=== PATIENT | female | born 1990 | race Caucasian/White ===

== ENCOUNTER 2017-03-28 08:36 | Emergency (ER) | payer SELFPAY ==
[2017-03-28 08:56] VITALS: BP 133/86
[2017-03-28 09:36] LABS: HEMATOCRIT 47.5 % (36.0-47.0); HEMOGLOBIN 16.6 g/dL (12.0-15.5); MEAN CORPUSCULAR HEMOGLOBIN 39.6 pg (27.0-33.4); MEAN CORPUSCULAR HGB CONC 34.9 g/dL (32.0-36.0); PLATELET COUNT 197 10^3/uL (150-450); RED BLOOD COUNT 4.19 10^6/uL (3.72-5.28); WHITE BLOOD COUNT 11.9 10^3/uL (4.0-10.5)
[2017-03-28 09:38] LABS: MEAN CORPUSCULAR VOLUME 113 fl (80-97)
--- NOTE | 2017-03-28 09:42 | ER Document Report ---
ED General - General Chief Complaint: Breathing Difficulty Stated Complaint: DIFFICULTY BREATHING Time Seen by Provider: 03/28/17 09:38 Mode of Arrival: Ambulatory Information source: Patient Notes: 26 yr old female presents with complaints of anxiety, sob and right back pain. Pt notes it hurts upon palpation, hurts with deep breath. Pt denies any dvt pe risk factors except for smoking. TRAVEL OUTSIDE OF THE [place] IN LAST 30 DAYS: No - HPI Onset: Yesterday Onset/Duration: Sudden Quality of pain: Achy Severity: Mild Pain Level: 1 Associated symptoms: Body/muscle aches, Hurts to breath, Shortness of breath Exacerbated by: Movement, Deep breathing Relieved by: Denies Similar symptoms previously: No Recently seen / treated by doctor: No - Related Data Allergies/Adverse Reactions: No Known Allergies Allergy (Verified 11/28/12 19:42) Past Medical History - Social History Smoking Status: Current Every Day Smoker Cigarette use (# per day): Yes Chew tobacco use (# tins/day): No Smoking Education Provided: Yes Family History: Reviewed & Not Pertinent Psychiatric Medical History: Reports: Hx Anxiety, Hx Depression - Immunizations Hx Diphtheria, Pertussis, Tetanus Vaccination: Yes Review of Systems - Review of Systems Notes: REVIEW OF SYSTEMS: CONSTITUTIONAL : Denies fever, chills, or sweats. Denies recent illness. EENT: Denies eye, ear, throat, or mouth pain or symptoms. Denies nasal or sinus congestion or discharge. Denies throat, tongue, or mouth swelling or difficulty swallowing. CARDIOVASCULAR: Denies chest pain. Denies palpitations or racing or irregular heart beat. Denies ankle edema. RESPIRATORY: admits to sob GASTROINTESTINAL: Denies abdominal pain or distention. Denies nausea, vomiting , or diarrhea. Denies blood in vomitus, stools, or per rectum. Denies black, tarry stools. Denies constipation. GENITOURINARY: Denies difficulty urinating, painful urination, burning, frequency, blood in urine, or discharge. FEMALE GENITOURINARY: Denies vaginal bleeding, heavy or abnormal periods, irregular periods. Denies vaginal discharge or odor. MUSCULOSKELETAL: admits to right sided back pain HEMATOLOGIC : Denies easy bruising or bleeding. LYMPHATIC: Denies swollen, enlarged glands. NEUROLOGICAL: Denies confusion or altered mental status. Denies passing out or loss of consciousness. Denies dizziness or lightheadedness. Denies headache. Denies weakness or paralysis or loss of use of either side. Denies problems with gait or speech. Denies sensory loss, numbness, or tingling. Denies seizures. PSYCHIATRIC: Denies anxiety or stress. Denies depression, suicidal ideation, or homicidal ideation. ALL OTHER SYSTEMS REVIEWED AND NEGATIVE. PHYSICAL EXAMINATION: GENERAL: Well-appearing, well-nourished and in no acute distress. HEAD: Atraumatic, normocephalic. EYES: Pupils equal round and reactive to light, extraocular movements intact, conjunctiva are normal. ENT: Nares patent, oropharynx clear without exudates. Moist mucous membranes. NECK: Normal range of motion, supple without lymphadenopathy LUNGS: Breath sounds clear to auscultation bilaterally and equal. No wheezes rales or rhonchi. HEART: Regular rate and rhythm without murmurs ABDOMEN: Soft, nontender, nondistended abdomen. No guarding, no rebound. No masses appreciated. Female : deferred Musculoskeletal: Normal range of motion, no pitting or edema. No cyanosis. tenderness on palpation of the right axillary to right scapulary region. NEUROLOGICAL: Cranial nerves grossly intact. Normal speech, normal gait. Normal sensory, motor exams PSYCH: Normal mood, normal affect. SKIN: Warm, Dry, normal turgor, no rashes or lesions noted. Dictation was performed using [email or web address] voice recognition software Physical Exam - Vital signs Vitals: Temp Pulse Resp BP Pulse Ox 98.3 F 131 H 16 133/86 H 98 03/28/17 08:54 03/28/17 08:54 03/28/17 08:54 03/28/17 08:54 03/28/17 08:54 Course - Re-evaluation Re-evalutation: 03/28/17 10:24 pt is low risk for OE but tachycardic with inverted t waves on ekg. the V2 -3 findings are different from ekg 4 years ago 03/28/17 10:29 cta notes no pe, there is an infiltrate at the right base, pt beleives she has a pulled muscle and will treat both. Pt will be given cardiac gfollow up for inverted t waves nonethe less. After performing a Medical Screening Examination, I estimate there is LOW risk for RUPTURED ESOPHAGUS, PNEUMOTHORAX, PULMONARY EMBOLISM, ACUTE CORONARY SYNDROME, OR THORACIC AORTIC DISSECTION, thus I consider the discharge disposition reasonable. I have reevaluated this patient multiple times and no significant life threatening changes are noted. The patient and I have discussed the diagnosis and risks, and we agree with discharging home with close follow-up. We also discussed returning to the Emergency Department immediately if new or worsening symptoms occur. We have discussed the symptoms which are most concerning (e.g., bloody sputum, worsening pain or shortness of breath) that necessitate immediate return. - Vital Signs Vital signs: Temp Pulse Resp BP Pulse Ox 98.3 F 131 H 16 133/86 H 98 03/28/17 08:54 03/28/17 08:54 03/28/17 08:54 03/28/17 08:54 03/28/17 09:40 - Laboratory Result Diagrams: 03/28/17 09:08 03/28/17 09:08 Laboratory results interpreted by me: 03/28/17 03/28/17 03/28/17 09:08 09:08 09:08 WBC 11.9 H Hgb 16.6 H Hct 47.5 H MCV 113 H MCH 39.6 H RDW 15.0 H Seg Neuts % (Manual) 80 H Band Neutrophils % 1 L Monocytes % (Manual) 2 L Abs Neuts (Manual) 9.6 H Sodium 134.5 L Chloride 97 L Total Bilirubin 2.7 H Direct Bilirubin 0.8 H AST 68 H Alkaline Phosphatase 140 H Creatine Kinase 20 L Albumin 3.4 L Urine Protein 30 H Urine Glucose (UA) 50 H Urine Blood SMALL H Urine Bilirubin SMALL H Urine Urobilinogen 4.0 H Ur Leukocyte Esterase TRACE H - EKG Interpretation by Me EKG shows normal: Sinus rhythm, [place], Intervals, QRS Complexes, ST-T Waves - inverted t waves on Discharge - Discharge Clinical Impression: Anxiety, Muscle spasm, Inverted T wave Pneumonia Qualifiers: Pneumonia type: due to unspecified organism Laterality: right Lung location: lower lobe of lung Qualified Code(s): J18.1 - Lobar pneumonia, unspecified organism Condition: Stable Disposition: HOME, SELF-CARE Instructions: Pneumonia ([facility]), Electrogram Abnormality ([facility]) Prescriptions: Azithromycin 250 mg PO ASDIR PRN #6 tablet PRN Reason: Azithromycin 500 mg PO BID #30 tablet Naproxen 500 mg PO BID #20 tablet Referrals: LIZY DOCKERY MD [ACTIVE STAFF] - Follow up tomorrow
[2017-03-28 09:48] LABS: APPEARANCE,URINE TURBID; BILIRUBIN,URINE SMALL (NEGATIVE); COLOR,URINE AMBER; GLUCOSE, URINE 50 mg/dL (NEGATIVE); KETONES,URINE NEGATIVE (NEGATIVE); LEUKOCYTE ESTERASE,URINE TRACE (NEGATIVE); NITRITE,URINE NEGATIVE (NEGATIVE); PROTEIN,URINE 30 mg/dL (NEGATIVE); URINE SPECIFIC GRAVITY 1.033
[2017-03-28 09:49] LABS: ALANINE AMINOTRANSFERASE 51 U/L (9-52); ALBUMIN 3.4 g/dL (3.5-5.0); ALKALINE PHOSPHATASE 140 U/L (38-126); ANION GAP 11 (5-19); ASPARTATE AMINO TRANSFERASE 68 U/L (14-36); BILIRUBIN,DIRECT 0.8 mg/dL (0.0-0.4); BILIRUBIN,TOTAL 2.7 mg/dL (0.2-1.3); BLOOD UREA NITROGEN 7 mg/dL (7-20); CALCIUM 9.2 mg/dL (8.4-10.2); CARBON DIOXIDE 27 mmol/L (22-30); CHLORIDE 97 mmol/L (98-107); CREATINE KINASE 20 U/L (30-135); GLUCOSE 102 mg/dL (75-110); POTASSIUM 3.7 mmol/L (3.6-5.0); SODIUM 134.5 mmol/L (137-145); TOTAL PROTEIN 6.6 g/dL (6.3-8.2)
[2017-03-28] MEDS ORDERED: NAPROXEN 250 MG TABLET PO ONE (09:54)
[2017-03-28 10:02] LABS: CREATINE KINASE MB < 0.22 ng/mL (<4.55); TROPONIN I < 0.012 ng/mL
[2017-03-28 10:03] LABS: ABSOLUTE MONOCYTES # (MANUAL) 0.2 10^3/uL (0.1-1.4); ABSOLUTE NEUTROPHILS# (MANUAL) 9.6 10^3/uL (1.7-8.2); BAND NEUTROPHILS % (MANUAL) 1 % (3-5); BASOPHILS % (MANUAL) 0 % (0-2); EOSINOPHILS % (MANUAL) 0 % (0-6); LYMPHOCYTES % (MANUAL) 15 % (13-45); MONOCYTES % (MANUAL) 2 % (3-13); SEGMENTED NEUTROPHILS % (MAN) 80 % (42-78); TOTAL CELLS COUNTED 100
--- NOTE | 2017-03-28 10:03 | RADIOLOGY REPORT (SQ) ---
EXAM DESCRIPTION: CHEST PA/LAT COMPLETED DATE/TIME: 03/28/2017 9:49 am REASON FOR STUDY: rme db tachycardic COMPARISON: Two-view chest 07/05/2013 EXAM PARAMETERS: NUMBER OF VIEWS: two views TECHNIQUE: Digital Frontal and Lateral radiographic views of the chest acquired. RADIATION DOSE: NA LIMITATIONS: none FINDINGS: LUNGS AND PLEURA: No opacities, masses or pneumothorax. No pleural effusion. MEDIASTINUM AND HILAR STRUCTURES: No masses or contour abnormalities. HEART AND VASCULAR STRUCTURES: Heart normal size. No evidence for failure. BONES: No acute findings. HARDWARE: None in the chest. OTHER: No other significant finding. IMPRESSION: NO SIGNIFICANT RADIOGRAPHIC FINDING IN THE CHEST. TECHNICAL DOCUMENTATION: JOB ID: [id number] [employer]- All Rights Reserved
[2017-03-28 10:04] LABS: ANISOCYTOSIS SLIGHT; PLATELET COMMENT ADEQUATE; POLYCHROMASIA SLIGHT; ROULEAUX SLIGHT; STOMATOCYTES SLIGHT; TOXIC GRANULATION SLIGHT; TOXIC VACUOLATION PRESENT
--- NOTE | 2017-03-28 10:23 | RADIOLOGY REPORT (SQ) ---
EXAM DESCRIPTION: CTA CHEST COMPLETED DATE/TIME: 03/28/2017 10:09 am REASON FOR STUDY: chest pain sob LMP 02/24/2017 COMPARISON: None. TECHNIQUE: CT scan of the chest performed using helical scanning technique with dynamic intravenous contrast injection. Images reviewed with lung, soft tissue and bone windows. Reconstructed coronal and sagittal MPR images reviewed. Additional 3 dimensional post-processing performed to develop Maximal Intensity Projection images (MA P). All images stored on PACS. All CT scanners at this facility use dose modulation, iterative reconstruction, and/or weight based d osing when appropriate to reduce radiation dose to as low as reasonably achievable (ALARA). [facility]: Dose Right [facility]: CareDose [facility]: Dose Right [facility]: Teradose 4D [facility]: [employer] CONTRAST TYPE AND DOSE: 69 mL Isovue 370 intravenously Contrast bolus optimized for the pulmonary arteries. Not diagnostic for the aorta. RENAL FUNCTION: Creatinine 0.69 RADIATION DOSE: CT Rad equipment meets quality standard of care and radiation dose reduction techniq ues were employed. CTDIvol: 16.5 - 19.3 mGy. DLP: 697 mGy-cm. . LIMITATIONS: None. FINDINGS: LUNGS AND PLEURA: Patchy infiltrate is seen at the right lung base. No pleural effusion o r pneumothorax. AORTA AND GREAT VESSELS: No aneurysm. Contrast bolus not optimized for the aorta. HEART: No pericardial effusion. No significant coronary artery calcifications. PULMONARY ARTERIES: No emboli visualized in the main pulmonary arteries or the segmental branches. HILAR AND MEDIASTINAL STRUCTURES: No identified masses or abnormal nodes. HARDWARE: None in the chest. UPPER ABDOMEN: Likely fatty change of the liver. THYROID AND OTHER SOFT TISSUES: No masses. No adenopathy. BONES: No acute or significant finding. 3D MIPS: Confirm above findings. OTHER: No other significant finding. IMPRESSION: No CT evidence for central pulmonary embolus. Patchy infiltrate is noted at the right lung base. COMMENT: Quality ID # [id number]: Final reports with documentation of one or more dose reduction techniques (e.g., Automated exposure control, adjustment of the mA and/or kV according to patient size, use of iterative reconstruction technique) TECHNICAL DOCUMENTATION: JOB ID: [id number]- All Rights Reserved
--- NOTE | 2017-03-28 19:33 | EKG REPORT ---
SEVERITY:- ABNORMAL ECG - SINUS RHYTHM ABNORMAL T, CONSIDER ISCHEMIA, ANTERIOR LEADS BORDERLINE PROLONGED QT INTERVAL : Confirmed by: Ganga Banks 28-Mar-2017 19:32:40
== END 2017-03-28 10:47 | disposition home or self-care (01) ==
LOC: ER 08:36
DX: J18.1 Lobar pneumonia, unspecified organism (principal); F41.9 Anxiety disorder, unspecified; R94.31 Abnormal electrocardiogram [ECG] [EKG]; M62.838 Other muscle spasm; R06.02 Shortness of breath; M54.9 Dorsalgia, unspecified; R07.1 Chest pain on breathing; R00.0 Tachycardia, unspecified; F17.210 Nicotine dependence, cigarettes, uncomplicated
CPT/HCPCS: 36415; 71046; 71275; 80053; 81001; 81025; 82550; 82553; 84484; 85025; 93005; 93010; 99285

== ENCOUNTER 2017-07-18 17:12 | Emergency (ER) | payer SELFPAY ==
[2017-07-18] MEDS ORDERED: HYDROCODONE/ACETAMINOPHEN 5-325 MG TABLET PO ONE (19:47)
--- NOTE | 2017-07-18 19:51 | ER Document Report ---
ED Extremity Problem, Lower - General Chief Complaint: Leg Pain Stated Complaint: LEFT LEG PAIN Time Seen by Provider: 07/18/17 17:59 Mode of Arrival: Ambulatory Information source: Patient TRAVEL OUTSIDE OF THE [place] IN LAST 30 DAYS: No - HPI Patient complains to provider of: Pain, Swelling Notes: Patient is here with complaints of left leg pain and swelling. She states that the leg is been hurting for approximately 2 weeks. The pain started in her calf and has progressively moved up her leg. Over the last few days she has noticed that her left leg is swollen. She denies any recent long trips or surgeries, hormone use, cancer, history of DVT or PE. She states that she is now having some left posterior chest wall pain when she takes a deep breath. She denies any shortness of breath. She denies any numbness, tingling, weakness. No bowel or bladder dysfunction. No blood thinners. No fever. No abdominal pain. No nausea, vomiting, diarrhea. No injury. Nothing seems to make her symptoms better. Her left posterior chest wall pain is worse with deep breath. - Related Data Allergies/Adverse Reactions: No Known Allergies Allergy (Verified 11/28/12 19:42) Past Medical History - Social History Smoking Status: Current Every Day Smoker Chew tobacco use (# tins/day): No Frequency of alcohol use: Occasional Drug Abuse: None Family History: Reviewed & Not Pertinent Patient has suicidal ideation: No Patient has homicidal ideation: No Renal/ Medical History: Denies: Hx Peritoneal Dialysis Psychiatric Medical History: Reports: Hx Anxiety, Hx Depression - Immunizations Hx Diphtheria, Pertussis, Tetanus Vaccination: Yes Review of Systems - Review of Systems -: Yes All other systems reviewed and negative Physical Exam - Vital signs Vitals: Temp Pulse Resp BP Pulse Ox 98.4 F 113 H 18 132/86 H 97 07/18/17 17:49 07/18/17 17:49 07/18/17 17:49 07/18/17 17:49 07/18/17 17:49 - Notes Notes: GENERAL: alert, cooperative, nontoxic, no distress. HEAD: normocephalic, atraumatic EYES: conjunctiva pink without discharge, no external redness or swelling. EARS: no external swelling, no external redness NOSE: atraumatic, no external swelling MOUTH/THROAT: mucous membranes moist and pink, posterior pharynx without erythema, swelling, exudate. No trismus or drooling. NECK: soft, supple, full range of motion, no meningismus. CHEST: no distress, lungs clear and equal throughout. No wheezing, rales, rhonchi. CARDIAC: regular rhythm, mild tachycardia, no murmur, normal capillary refill, normal pulses. No peripheral edema noted. ABDOMEN: Soft, nontender. BACK: full range of motion, no CVA tenderness. EXTREMITIES: full range of motion of all extremities. No redness, swelling to the left lower extremity. Mild tenderness along the entire leg. No redness. Normal pulse and sensation. Compartments are soft. NEURO: alert and oriented x 3, no focal deficits, full range of motion of all extremities. PYSCH: appropriate mood, affect. Patient is cooperative. SKIN: pink, warm, dry, no rash. Course - Re-evaluation Re-evalutation: 07/18/17 22:19 Patient was started on heparin drip as soon as we found that that she had a full leg DVT. CTA of the chest shows bilateral pulmonary embolism with saddle embolism and by lateral pulmonary infarcts. At this point the patient remained stable with stable blood pressure and O2 saturation. She is not having any significant pain. I discussed the case with Dr. Lemus, the overnight hospitalist. He recommends transfer to another facility with vascular surgery due to the extent of her clot. 07/18/17 22:49 Patient states that she would like to go to [place] if possible. I have contacted the radiology interventional laboratory chemical assistant, he states that they would be able to take care of this patient there if the patient can be accepted for admission. I have called the transfer center for [facility] incoherently am waiting for return phone call. 07/18/17 23:26 Patient remained stable at this time. Was able to discuss the case with Dr. Alcaraz at [facility]. He has accepted the patient to the hospital there for transfer. Patient will be transferred there soon as a room is available. We will continue to monitor the patient. She will continue on her heparin drip. - Vital Signs Vital signs: Temp Pulse Resp BP Pulse Ox 98.7 F 113 H 20 123/89 H 96 07/18/17 20:50 07/18/17 17:49 07/18/17 22:01 07/18/17 22:01 07/18/17 22:01 - Laboratory Result Diagrams: 07/18/17 20:18 07/18/17 20:18 Laboratory results interpreted by me: 07/18/17 07/18/17 20:18 20:18 WBC 10.8 H Hgb 16.3 H Hct 47.5 H MCV 113 H MCH 38.8 H RDW 25.1 H Total Bilirubin 1.4 H AST 79 H Alkaline Phosphatase 141 H Albumin 3.3 L - Diagnostic Test Radiology reviewed: Image reviewed, Reports reviewed - Patient with DVT from the common femoral down on the left leg. Patient with bilateral pulmonary embolism, saddle embolism, bilateral pulmonary infarcts on CTA of the chest. - EKG Interpretation by Me EKG shows normal: Sinus rhythm, [place], Intervals, QRS Complexes, ST-T Waves Rate: Normal Rhythm: NSR Discharge - Discharge Clinical Impression: Pulmonary infarct Left leg DVT Qualifiers: Affected thrombotic vein of extremity: unspecified vein of extremity Chronicity : acute Qualified Code(s): I82.402 - Acute embolism and thrombosis of unspecified deep veins of left lower extremity Pulmonary embolism Qualifiers: Pulmonary embolism type: saddle Chronicity: acute Acute cor pulmonale presence : without acute cor pulmonale Qualified Code(s): I26.92 - Saddle embolus of pulmonary artery without acute cor pulmonale Condition: Serious Disposition: On license of [facility]
--- NOTE | 2017-07-18 20:18 | EKG REPORT ---
SEVERITY:- NORMAL ECG - SINUS RHYTHM : Confirmed by: Ganga Banks 18-Jul-2017 20:18:18
[2017-07-18 20:40] LABS: ABSOLUTE BASOPHILS # (AUTO) 0.1 10^3/uL (0.0-0.2); ABSOLUTE EOSINOPHILS # (AUTO) 0.4 10^3/uL (0.0-0.6); ABSOLUTE LYMPHOCYTES (AUTO) 2.1 10^3/uL (0.5-4.7); ABSOLUTE MONOCYTES (AUTO) 0.5 10^3/uL (0.1-1.4); ABSOLUTE NEUT (AUTO) 7.8 10^3/uL (1.7-8.2); BASOPHILS % (AUTO) 0.6 % (0-2); EOSINOPHILS % (AUTO) 3.4 % (0-6); HEMATOCRIT 47.5 % (36.0-47.0); HEMOGLOBIN 16.3 g/dL (12.0-15.5); LYMPHOCYTES % (AUTO) 19.7 % (13-45); MEAN CORPUSCULAR HEMOGLOBIN 38.8 pg (27.0-33.4); MEAN CORPUSCULAR HGB CONC 34.3 g/dL (32.0-36.0); MEAN CORPUSCULAR VOLUME 113 fl (80-97); MONOCYTES % (AUTO) 4.2 % (3-13); PLATELET COUNT 232 10^3/uL (150-450); RED CELL DISTRIBUTION WIDTH 25.1 % (11.5-14.0); SEGMENTED NEUTROPHILS % (AUTO) 72.1 % (42-78); TOTAL CELLS COUNTED % (AUTO) 100 %; WHITE BLOOD COUNT 10.8 10^3/uL (4.0-10.5)
[2017-07-18] MEDS ORDERED: HEPARIN SOD (PORCINE) 1,000 UNIT/ML 10 ML VIAL IV ONE (20:54)
[2017-07-18] MEDS ORDERED: HEPARIN SODIUM,PORCINE/D5W 25,000 UNIT/250 ML RTUINJ IV PRN (20:54)
[2017-07-18 20:58] LABS: ALANINE AMINOTRANSFERASE 51 U/L (9-52); ALBUMIN 3.3 g/dL (3.5-5.0); ALKALINE PHOSPHATASE 141 U/L (38-126); ANION GAP 11 (5-19); ASPARTATE AMINO TRANSFERASE 79 U/L (14-36); BILIRUBIN,DIRECT 0.4 mg/dL (0.0-0.4); BILIRUBIN,TOTAL 1.4 mg/dL (0.2-1.3); BLOOD UREA NITROGEN 9 mg/dL (7-20); CALCIUM 9.2 mg/dL (8.4-10.2); CARBON DIOXIDE 27 mmol/L (22-30); CHLORIDE 100 mmol/L (98-107); GLUCOSE 96 mg/dL (75-110); POTASSIUM 4.1 mmol/L (3.6-5.0); SODIUM 138.1 mmol/L (137-145); TOTAL PROTEIN 6.7 g/dL (6.3-8.2)
[2017-07-18 20:59] LABS: ANISOCYTOSIS 3+; OVALOCYTES SLIGHT; PLATELET COMMENT ADEQUATE; POIKILOCYTOSIS SLIGHT
[2017-07-18 21:02] LABS: TOXIC GRANULATION SLIGHT
--- NOTE | 2017-07-18 22:19 | RADIOLOGY REPORT (SQ) ---
EXAM DESCRIPTION: CTA CHEST COMPLETED DATE/TIME: 07/18/2017 9:31 pm REASON FOR STUDY: left posterior chest pain . Left lower extremity deep vein thrombosis. COMPARISON: CT chest 03/28/2017. CT abdomen and pelvis 07/18/2017. TECHNIQUE: CT scan of the chest performed using helical scanning technique with dynamic intravenous contrast injection. Images reviewed with lung, soft tissue and bone windows. Reconstructed coronal and sagittal MPR images reviewed. Additional 3 dimensional post-processing performed to develop Maximal Intensity Projection images (NH P). All images stored on PACS. All CT scanners at this facility use dose modulation, iterative reconstruction, and/or weight based d osing when appropriate to reduce radiation dose to as low as reasonably achievable (ALARA). [facility]: Dose Right [facility]: CareDose [facility]: Dose Right [facility]: Teradose 4D [facility]: [employer] CONTRAST TYPE AND DOSE: 71 mL Isovue 370 Contrast bolus optimized for the pulmonary arteries. Not diagnostic for the aorta. RENAL FUNCTION: None required. The patient is less than 50 years old. RADIATION DOSE: . LIMITATIONS: None. FINDINGS: LUNGS AND PLEURA: There are wedge-shaped pleural-based ground-glass opacities at the bilat eral lower lobes. No pleural effusion or pneumothorax. AORTA AND GREAT VESSELS: No thoracic aortic aneurysm. Contrast bolus not optimized for the aorta. HEART: No pericardial effusion. No significant coronary artery calcifications. PULMONARY ARTERIES: There are extensive bilateral pulmonary emboli extending across the pulmonary art galilea, consistent with saddle embolus. HILAR AND MEDIASTINAL STRUCTURES: No identified masses or abnormal nodes. HARDWARE: None in the chest. UPPER ABDOMEN: See separate report of the CT of the abdomen. THYROID AND OTHER SOFT TISSUES: No masses. No adenopathy. BONES: No acute or significant finding. 3D MIPS: Confirm above findings. IMPRESSION: 1. Acute bilateral extensive pulmonary emboli with saddle embolus. 2. Wedge-shaped pleural-based ground-glass opacities at the bilateral lower lobes fat, probably repre senting pulmonary infarcts/hemorrhages. COMMENT: Pertinent findings on the imaging study reported as a CRITICAL RESULT to Dr. Garcia At22:15 hrs on 07/18/2017. Category of Critical Result: Acute bilateral extensive pulmonary emboli with saddle embolus and bilat eral pulmonary infarcts/hemorrhages. Quality ID # [id number]: Final reports with documentation of one or more dose reduction techniques (e.g., Au tomated exposure control, adjustment of the mA and/or kV according to patient size, use of iterative reconstruction technique) TECHNICAL DOCUMENTATION: JOB ID: [id number] 2010 [employer]- All Rights Reserved Reading location - IP/workstation name: [email or web address]
--- NOTE | 2017-07-18 22:32 | RADIOLOGY REPORT (SQ) ---
EXAM DESCRIPTION: CT ABD/PELVIS WITH IV ONLY COMPLETED DATE/TIME: 07/18/2017 9:31 pm REASON FOR STUDY: left leg dvt COMPARISON: CT angiogram chest 07/18/2017. TECHNIQUE: CT scan of the abdomen and pelvis performed using helical scanning technique with dynamic intravenous contrast injection. No oral contrast. Images reviewed with lung, soft tissue, and bone windows. Reconstructed coronal and sagittal MPR images reviewed. Delayed images for evaluation of the urinary system also acquired. All images stored on PACS. All CT scanners at this facility use dose modulation, iterative reconstruction, and/or weight based d osing when appropriate to reduce radiation dose to as low as reasonably achievable (ALARA). [facility]: Dose Right [facility]: CareDose [facility]: Dose Right [facility]: Teradose 4D [facility]: [email or web address] CONTRAST TYPE AND DOSE: 71 mL Isovue 370- low osmolar. RENAL FUNCTION: None required. The patient is less than 50 years old. RADIATION DOSE: . LIMITATIONS: None. FINDINGS: LOWER CHEST: See separate report of the CT of the chest. LIVER: Diffuse decreased attenuation, most consistent with fatty infiltration. No dilated ducts. SPLEEN: Normal size. PANCREAS: No significant calcifications. No adjacent inflammation or peripancreatic fluid collections . Pancreatic duct not dilated. GALLBLADDER: Present. ADRENAL GLANDS: No significant masses or asymmetry. RIGHT KIDNEY AND URETER: No solid masses. No significant calcifications. No hydronephrosis or hyd roureter. LEFT KIDNEY AND URETER: No solid masses. No significant calcifications. No hydronephrosis or hydr oureter. AORTA AND VESSELS: No abdominal aortic aneurysm or dissection. Renal arteries, SMA, celiac without st enosis. The IVC and the common iliac veins are not well opacified. Soft tissue stranding is seen ar ound the visualized veins at the left lower leg. There is a filling defect at the left femoral vein, common femoral vein and extending into the left external iliac vein. RETROPERITONEUM: No retroperitoneal hemorrhage or masses. BOWEL AND PERITONEAL CAVITY: No dilated bowel loops or inflammatory changes. No free fluid or free ai r. APPENDIX: Normal. PELVIS: No mass. No free fluid. Partially distended bladder. ABDOMINAL WALL: No hernias. BONES: No significant or acute findings. IMPRESSION: 1. Acute deep vein thrombosis at the visualized left femoral vein, common femoral vein and extending into the left external iliac vein. The IVC and the common iliac veins are suboptimally opacified on this exam, limiting evaluation. 2. Fatty infiltration of the liver. TECHNICAL DOCUMENTATION: JOB ID: [id number] [facility] Quality ID # [id number]: Final reports with documentation of one or more dose reduction techniques (e.g., Au tomated exposure control, adjustment of the mA and/or kV according to patient size, use of iterative reconstruction technique) 2010 [employer]- All Rights Reserved Reading location - IP/workstation name: [email or web address]
[2017-07-19 02:23] VITALS: BP 112/80
--- NOTE | 2017-07-19 11:52 | XCELERA REPORT ---
[address] [address] Lower Extremity Venous Evaluation Name: BRANT MARION Age: 27 yrs Gender: Female : 1990 Patient Status: Emergency Patient Location: ER Study Date: 07/18/2017 08:27 PM Procedure: Color flow and duplex imaging of the veins of the left lower extremity as well as the right Common Femoral vein. Reason For Study: left leg pain and swelling Ordering Physician: DION FARRIS Performed By: Vahid Walker Left Sided Venous Evaluation Enlarged . veins with no Colour flow down to the infrageniculate veins. Also in the Short Saphenous vein. Interpretation Summary Extensive acute DVT in the left lower extremity. : DION FARRIS [place]
== END 2017-07-19 02:31 | disposition short-term general hospital (02) ==
LOC: ER 17:12
DX: I82.412 Acute embolism and thrombosis of left femoral vein (principal); I82.422 Acute embolism and thrombosis of left iliac vein; I26.92 Saddle embolus of pulmonary artery without acute cor pulmonale; F17.200 Nicotine dependence, unspecified, uncomplicated
CPT/HCPCS: 93005; 99285; 96365; 96366; 36415; 84703; 85025; 85730; 82272; 80053; 84484; 93971 ×2; 71275; 74177; 93010; J1644 ×2

== ENCOUNTER 2017-10-07 00:38 | Emergency (ER) | payer SELFPAY ==
[2017-10-07] MEDS ORDERED: LIDOCAINE 1%/EPINEPHRINE INJ 20 ML VIAL INJ ONE (01:02)
[2017-10-07] MEDS ORDERED: LORAZEPAM INJ 2 MG/1 ML VIAL IV ONE (01:02)
[2017-10-07] MEDS ORDERED: NORMAL SALINE 1000 ML 1,000 ML IV ONE (01:02)
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
[2017-10-07 03:12] VITALS: BP 120/80
== END 2017-10-07 03:17 | disposition home or self-care (01) ==
LOC: ER 00:38
PROC: 0HQFXZZ Repair Right Hand Skin, External Approach (ICD-10-PCS; principal; 2017-10-07)
DX: S61.411A Laceration without foreign body of right hand, initial encounter (principal); X99.1XXA Assault by knife, initial encounter; Y92.007 Garden or yard of unspecified non-institutional (private) residence as the place of occurrence of the external cause; Z86.711 Personal history of pulmonary embolism; Z79.02 Long term (current) use of antithrombotics/antiplatelets; F17.200 Nicotine dependence, unspecified, uncomplicated
CPT/HCPCS: 99283; 96361; 96374; 12002; J3490; J2060; J7030

== ENCOUNTER → 2018-02-17 | Outpatient (CLI) | payer SELFPAY ==
[2018-02-17 11:11] LABS: ABSOLUTE EOSINOPHILS # (AUTO) 0.1 10^3/uL (0.0-0.6); ABSOLUTE LYMPHOCYTES (AUTO) 2.6 10^3/uL (0.5-4.7); ABSOLUTE MONOCYTES (AUTO) 0.3 10^3/uL (0.1-1.4); ABSOLUTE NEUT (AUTO) 4.4 10^3/uL (1.7-8.2); BASOPHILS % (AUTO) 0.4 % (0-2); EOSINOPHILS % (AUTO) 1.6 % (0-6); HEMATOCRIT 47.7 % (36.0-47.0); HEMOGLOBIN 16.6 g/dL (12.0-15.5); MEAN CORPUSCULAR HEMOGLOBIN 36.8 pg (27.0-33.4); MEAN CORPUSCULAR HGB CONC 34.9 g/dL (32.0-36.0); MEAN CORPUSCULAR VOLUME 105 fl (80-97); MONOCYTES % (AUTO) 4.2 % (3-13); PLATELET COUNT 187 10^3/uL (150-450); RED BLOOD COUNT 4.52 10^6/uL (3.72-5.28); RED CELL DISTRIBUTION WIDTH 19.1 % (11.5-14.0); SEGMENTED NEUTROPHILS % (AUTO) 58.8 % (42-78); TOTAL CELLS COUNTED % (AUTO) 100 %
[2018-02-17 11:39] LABS: WHITE BLOOD COUNT 7.4 10^3/uL (4.0-10.5)
[2018-02-17 11:48] LABS: INTERNATIONAL RATION (INR) 6.03; PROTHROMBIN TIME 56.4 SEC (11.4-15.4)
== END ==
LOC: LAB 10:56
DX: I26.99 Other pulmonary embolism without acute cor pulmonale (principal)
CPT/HCPCS: 36415; 85025; 85610

== ENCOUNTER → 2018-02-20 | Outpatient (CLI) | payer SELFPAY ==
[2018-02-20 16:20] LABS: INTERNATIONAL RATION (INR) 1.71; PROTHROMBIN TIME 20.9 SEC (11.4-15.4)
== END ==
LOC: LAB 15:29
PROVIDERS: ATTEND General Practice
DX: I26.99 Other pulmonary embolism without acute cor pulmonale (principal)
CPT/HCPCS: 36415; 85610

== ENCOUNTER 2018-04-15 00:51 | Emergency (ER) | payer SELFPAY | END 2018-04-15 01:40 | disposition left against medical advice (07) | LOC: ER 00:51 | DX: Z53.21 Procedure and treatment not carried out due to patient leaving prior to being seen by health care provider (principal); R20.0 Anesthesia of skin ==

== ENCOUNTER 2018-08-31 19:26 | Emergency (ER) | payer SELFPAY ==
[2018-08-31] MEDS ORDERED: LORAZEPAM INJ 2 MG/1 ML VIAL IV ONE (20:18)
[2018-08-31 20:47] LABS: ABSOLUTE LYMPHOCYTES (AUTO) 1.7 10^3/uL (0.5-4.7); ABSOLUTE MONOCYTES (AUTO) 0.3 10^3/uL (0.1-1.4); ABSOLUTE NEUT (AUTO) 6.1 10^3/uL (1.7-8.2); BASOPHILS % (AUTO) 0.5 % (0-2); EOSINOPHILS % (AUTO) 0.3 % (0-6); HEMATOCRIT 43.8 % (36.0-47.0); HEMOGLOBIN 15.5 g/dL (12.0-15.5); LYMPHOCYTES % (AUTO) 20.4 % (13-45); MEAN CORPUSCULAR HEMOGLOBIN 40.1 pg (27.0-33.4); MEAN CORPUSCULAR HGB CONC 35.3 g/dL (32.0-36.0); MONOCYTES % (AUTO) 3.6 % (3-13); PLATELET COUNT 206 10^3/uL (150-450); RED BLOOD COUNT 3.86 10^6/uL (3.72-5.28); RED CELL DISTRIBUTION WIDTH 14.4 % (11.5-14.0); SEGMENTED NEUTROPHILS % (AUTO) 75.2 % (42-78); TOTAL CELLS COUNTED % (AUTO) 100 %; WHITE BLOOD COUNT 8.1 10^3/uL (4.0-10.5)
[2018-08-31 20:49] LABS: MEAN CORPUSCULAR VOLUME 114 fl (80-97)
[2018-08-31 21:02] LABS: PLATELET COMMENT ADEQUATE
[2018-08-31 21:03] LABS: ALANINE AMINOTRANSFERASE 70 U/L (9-52); ALBUMIN 3.5 g/dL (3.5-5.0); ALKALINE PHOSPHATASE 228 U/L (38-126); ANION GAP 18 (5-19); BILIRUBIN,DIRECT 0.7 mg/dL (0.0-0.4); BLOOD UREA NITROGEN 3 mg/dL (7-20); CALCIUM 9.2 mg/dL (8.4-10.2); CARBON DIOXIDE 22 mmol/L (22-30); CHLORIDE 98 mmol/L (98-107); GLUCOSE 97 mg/dL (75-110); POTASSIUM 3.3 mmol/L (3.6-5.0); SODIUM 137.9 mmol/L (137-145); TOTAL PROTEIN 7.2 g/dL (6.3-8.2)
[2018-08-31 21:10] LABS: ASPARTATE AMINO TRANSFERASE 244 U/L (14-36)
[2018-08-31 21:12] LABS: ALCOHOL < 10 mg/dL (NONE DETECTED)
[2018-08-31 21:22] LABS: ANISOCYTOSIS 1+; POIKILOCYTOSIS SLIGHT; STOMATOCYTES SLIGHT
[2018-08-31 22:27] LABS: INTERNATIONAL RATION (INR) 1.18; PARTIAL THROMBOPLASTIN TIME 25.7 SEC (23.5-35.8); PROTHROMBIN TIME 15.1 SEC (11.4-15.4)
[2018-08-31 22:41] LABS: AMORPHOUS SEDIMENT,URINE TRACE /HPF; APPEARANCE,URINE CLEAR; BILIRUBIN,URINE NEGATIVE (NEGATIVE); COLOR,URINE AMBER; GLUCOSE, URINE NEGATIVE (NEGATIVE); KETONES,URINE 20 mg/dL (NEGATIVE); LEUKOCYTE ESTERASE,URINE NEGATIVE (NEGATIVE); NITRITE,URINE NEGATIVE (NEGATIVE); PROTEIN,URINE 30 mg/dL (NEGATIVE); URINE SPECIFIC GRAVITY 1.024
[2018-08-31 22:58] LABS: URINE AMPHETAMINES SCREEN NEGATIVE; URINE BARBITURATES SCREEN NEGATIVE; URINE BENZODIAZEPINES SCREEN NEGATIVE; URINE COCAINE SCREEN NEGATIVE; URINE MARIJUANA (THC) SCREEN NEGATIVE; URINE METHADONE SCREEN NEGATIVE; URINE PHENCYCLIDINE SCREEN NEGATIVE
--- NOTE | 2018-08-31 23:24 | RADIOLOGY REPORT (SQ) ---
EXAM DESCRIPTION: CT CHEST ANGIOGRAPHY WITHOUT THEN WITH IV CONTRAST COMPLETED DATE/TME: 08/31/2018 21:24 CLINICAL HISTORY: 28 years Female DVT, tachycardia COMPARISON: None. TECHNIQUE: Contiguous axial images were obtained through the chest during the infusion of IV contrast. Reformatted images obtained. MIP reformatted images obtained. This exam was performed according to our department optimization program which includes automated exposure control, adjustment of the mA and/or kv according to patient size and/or use of iterative reconstruction technique. FINDINGS: No evidence of mediastinal or hilar adenopathy. No evidence of aortic dissection. No pericardial or pleural effusion. Enlarged fatty liver. No evidence of pulmonary embolus. There is an area of pleural thickening and scarring along the posterior aspect of the right chest in the region of the previously noted infiltrate/infarct. There appears to been resolution of the pulmonary emboli seen on the previous exam. IMPRESSION:No evidence of pulmonary embolus Small area of scarring in the posterior right lung Fatty liver
[2018-08-31] MEDS ORDERED: ENOXAPARIN SODIUM INJ 80 MG/0.8 ML DISP.SYRIN SUBCUT ONE (23:42)
--- NOTE | 2018-09-01 00:18 | ER Document Report ---
ED General - General Chief Complaint: Tremor Stated Complaint: ALCOLHOLISM Time Seen by Provider: 08/31/18 19:47 Primary Care Provider: BRENTON PADRON MD [Primary Care Provider] - Follow up as needed TRAVEL OUTSIDE OF THE [place] IN LAST 30 DAYS: No - HPI Notes: Patient is a 28-year-old female who comes in to the emergency department for evaluation of multiple complaints. She states she believes she was having a panic attack. She states she started feeling numb in her hands and fingers. She started having perioral numbness as well. She states this is happened in the past with her panic attacks. She was trying to control her breathing. She states she felt as if she could not control her arms, so then she became more concerned. On further questioning the patient admits to drinking daily for the last 6 months. She states she drinks both beer and liquor daily. She states she usually drinks in the evenings, when her is home and she admits to being under significant amount of stress. Patient also states to me she has had a discomfort in her left leg. She has a history of DVT there. She states it feels like a "sausage casing exploding." She denies any chest pain or difficulty breathing at this time, but states she felt that way earlier with w hat she believed was an anxiety attack. - Related Data Allergies/Adverse Reactions: No Known Allergies Allergy (Verified 11/28/12 19:42) Past Medical History - Social History Smoking Status: Current Every Day Smoker Chew tobacco use (# tins/day): Yes Frequency of alcohol use: Heavy Drug Abuse: None Family History: Reviewed & Not Pertinent Patient has suicidal ideation: No Patient has homicidal ideation: No - Past Medical History Cardiac Medical History: Reports: Hx DVT, Hx Pulmonary Embolism Renal/ Medical History: Denies: Hx Peritoneal Dialysis Psychiatric Medical History: Reports: Hx Anxiety, Hx Depression - Immunizations Immunizations up to date: Yes Hx Diphtheria, Pertussis, Tetanus Vaccination: Yes Review of Systems - Review of Systems Constitutional: No symptoms reported EENT: No symptoms reported Cardiovascular: No symptoms reported Respiratory: No symptoms reported Gastrointestinal: See HPI Genitourinary: No symptoms reported Female Genitourinary: No symptoms reported Musculoskeletal: See HPI Skin: No symptoms reported Neurological/Psychological: See HPI Physical Exam - Vital signs Vitals: Resp BP Pulse Ox 12 129/93 H 99 08/31/18 19:36 08/31/18 19:36 08/31/18 19:36 - Notes Notes: Is a very anxious appearing 28-year-old female, who appears her stated age in mild to moderate distress. Vital signs reviewed, please refer to chart. Head is normocephalic, atraumatic. Pupils equal round, reactive to light. Neck is supple without meningismus. Heart is regular rate and rhythm. Lungs are clear to auscultation bilaterally. Abdomen is soft, nontender, normoactive bowel sounds throughout. Extremities without cyanosis, clubbing. She is nontender in the right posterior calf, left posterior calf is tender to palpation. Peripheral pulses are equal. Skin is warm and dry. Patient is awake, alert, neurological exam is nonfocal. Course - Re-evaluation Re-evalutation: 09/01/18 00:22 Patient presents emergency department for evaluation. Her symptoms certainly could be anxiety related. She has been drinking daily, but I do not have a strong suspicion of alcohol withdrawal, as the patient states that she would only have started drinking about an hour ago. Her CIWA score is low. She was given anxiety medication and felt improved. Doppler was ordered, she was found to have DVT and superficial venous thrombosis in the left lower extremity. She was given Lovenox. CT angiogram of the chest was ordered, which was found to be negative. Patient has been on Coumadin in the past. She cannot afford novel anticoagulants, is self-pay. Will discuss disposition with internal medicine. 09/01/18 04:[address] Melo of internal medicine. Given the fact that this patient has uncomplicated DVT, she does not meet admission criteria. He asks that we consider case management consult to obtain Lovenox and Coumadin prescriptions as an outpatient. I will write these, patient is amenable to staying pending case management help with prescriptions. I did discuss patient's alcohol dependence as well as her elevated LFTs. The patient is planning to seek outpatient detox help with her alcohol dependence issues. I strongly encouraged her to do so. She is to follow-up with primary care by the beginning of next week at the latest. She is seen at the [facility]. - Vital Signs Vital signs: Temp Pulse Resp BP Pulse Ox 98.1 F 22 H 100/67 99 08/31/18 19:45 09/01/18 02:00 09/01/18 02:00 09/01/18 02:00 - Laboratory Result Diagrams: 08/31/18 20:37 08/31/18 20:37 Laboratory results interpreted by me: 08/31/18 08/31/18 08/31/18 20:37 20:37 21:58 MCV 114 H MCH 40.1 H RDW 14.4 H Potassium 3.3 L BUN 3 L Total Bilirubin 2.0 H Direct Bilirubin 0.7 H AST 244 H ALT 70 H Alkaline Phosphatase 228 H Urine Protein 30 H Urine Ketones 20 H Urine Blood MODERATE H Urine Urobilinogen 2.0 H - Diagnostic Test Radiology reviewed: Reports reviewed Radiology results interpreted by me: 09/01/18 00:21 Chest/Abdomen CTA 08/31/18 21:24 IMPRESSION:No evidence of pulmonary embolus Small area of scarring in the posterior right lung Fatty liver Verbal report from fuel storage technician reveals peroneal DVT on the left, as well as superficial Discharge - Discharge Clinical Impression: Abnormal LFTs Deep vein thrombosis (DVT) of left lower extremity Qualifiers: Affected thrombotic vein of extremity: other lower extremity vein Chronicity: acute Qualified Code(s): I82.492 - Acute embolism and thrombosis of other specified deep vein of left lower extremity Alcohol dependence Qualifiers: Substance use status: other alcohol-induced disorder Qualified Code(s): F10.288 - Alcohol dependence with other alcohol-induced disorder Condition: Stable Disposition: HOME, SELF-CARE Instructions: DVT Outpatient Treatment ([facility]), Chronic Alcoholism ([facility]) Additional Instructions: You need to take medications as prescribed. Have your INR rechecked, and follow-up at [facility] on Tuesday. Continue to seek help for your alcohol dependence issues. Return to the emergency department with worsening or new concerning symptoms of any sort. Prescriptions: Warfarin Sodium [Coumadin 5 mg Tablet] 5 mg PO QHS #10 tablet Enoxaparin Sodium [Lovenox] 70 mg SQ BID #10 syringe Referrals: BRENTON PADRON MD [Primary Care Provider] - Follow up as needed
--- NOTE | 2018-09-01 00:46 | RADIOLOGY REPORT (SQ) ---
EXAM DESCRIPTION: RadLex: US EXTREMITY VEINS UNILATERAL CLINICAL HISTORY: 28 years Female; pain left leg / Hx clots TECHNIQUE: Multiple grayscale sonographic images of the leg were obtained utilizing a high-frequency linear array transducer supplemented with color Doppler, compression and augmentation techniques. COMPARISON: None. FINDINGS: Left leg veins: Common femoral: normal Greater saphenous: normal upper Superficial femoral: normal mid Superficial femoral: normal lower Superficial femoral: normal Popliteal: normal Posterior tibial: normal There is thrombus involving the peroneal and superficial saphenous veins below the knee. Right common femoral vein is patent without thrombosis. IMPRESSION: 1. Thrombosis of peroneal and superficial veins below the knee. 2. No thrombosis of the deep veins at and [id number].
[2018-09-01 10:17] VITALS: BP 99/72
[2018-09-01 11:17] LABS: PATH REVIEW PATHOLOGIST REVIEWED
== END 2018-09-01 10:17 | disposition home or self-care (01) ==
LOC: ER 19:26
DX: I82.492 Acute embolism and thrombosis of other specified deep vein of left lower extremity (principal); R94.5 Abnormal results of liver function studies; F10.288 Alcohol dependence with other alcohol-induced disorder; R20.0 Anesthesia of skin; F17.220 Nicotine dependence, chewing tobacco, uncomplicated; Z86.718 Personal history of other venous thrombosis and embolism; Z86.711 Personal history of pulmonary embolism
CPT/HCPCS: 99284; 96372; 96374; 36415; 80307 ×2; 85025; 85610; 85730; 81025; 80053; 81001; 93971; 71275; J2060; J1650

== ENCOUNTER 2018-09-18 13:49 | Emergency (ER) | payer SELFPAY ==
--- NOTE | 2018-09-18 15:38 | ER Document Report ---
ED Medical Screen (RME) - General Chief Complaint: Medical Clearance Stated Complaint: MEDICAL CLEARANCE Time Seen by Provider: 09/18/18 15:34 Primary Care Provider: BRENTON PADRON MD [Primary Care Provider] - Follow up as needed Mode of Arrival: Wheelchair Information source: Patient Notes: 28-year-old female presented to ED for complaint of need for clearance for me she did want to be joints for detox. She states that she also needs an INR to monitor her blood clot in her left leg. She is on blood thinners. She states she also had a "small seizure "this morning from detox so she drank some alcohol today. She states she smokes half a pack a day the last time she drank was today and she denies using any illicit drugs. I have greeted and performed a rapid initial assessment of this patient. A comprehensive ED assessment and evaluation of the patient, analysis of test results and completion of medical decision making process will be conducted by an additional ED providers. Dictation of this chart was performed using voice recognition software; therefore, there may be some unintended grammatical errors. TRAVEL OUTSIDE OF THE [place] IN LAST 30 DAYS: No - Related Data Allergies/Adverse Reactions: No Known Allergies Allergy (Verified 09/18/18 13:52) Past Medical History - Past Medical History Cardiac Medical History: Reports: Hx DVT, Hx Pulmonary Embolism Renal/ Medical History: Denies: Hx Peritoneal Dialysis Psychiatric Medical History: Reports: Hx Anxiety, Hx Depression - Immunizations Immunizations up to date: Yes Hx Diphtheria, Pertussis, Tetanus Vaccination: Yes Physical Exam - Vital signs Vitals: Temp Pulse Resp BP Pulse Ox 98.1 F 107 H 18 109/78 99 09/18/18 14:45 09/18/18 14:45 09/18/18 14:45 09/18/18 14:45 09/18/18 14:45 Course - Vital Signs Vital signs: Temp Pulse Resp BP Pulse Ox 98.1 F 107 H 18 109/78 99 09/18/18 14:45 09/18/18 14:45 09/18/18 14:45 09/18/18 14:45 09/18/18 14:45 Doctor's Discharge - Discharge Referrals: BRENTON PADRON MD [Primary Care Provider] - Follow up as needed
[2018-09-18 16:21] LABS: INTERNATIONAL RATION (INR) 4.48; PROTHROMBIN TIME 43.8 SEC (11.4-15.4)
[2018-09-18 16:22] LABS: PARTIAL THROMBOPLASTIN TIME 45.4 SEC (23.5-35.8)
[2018-09-18 16:26] LABS: APPEARANCE,URINE CLOUDY; BILIRUBIN,URINE MODERATE (NEGATIVE); COLOR,URINE AMBER; GLUCOSE, URINE 50 mg/dL (NEGATIVE); KETONES,URINE TRACE mg/dL (NEGATIVE); LEUKOCYTE ESTERASE,URINE NEGATIVE (NEGATIVE); NITRITE,URINE NEGATIVE (NEGATIVE); PROTEIN,URINE 100 mg/dL (NEGATIVE); URINE SPECIFIC GRAVITY 1.031
[2018-09-18 16:40] LABS: ABSOLUTE BASOPHILS # (AUTO) 0.1 10^3/uL (0.0-0.2); ABSOLUTE LYMPHOCYTES (AUTO) 2.5 10^3/uL (0.5-4.7); ABSOLUTE MONOCYTES (AUTO) 0.6 10^3/uL (0.1-1.4); ABSOLUTE NEUT (AUTO) 5.6 10^3/uL (1.7-8.2); BASOPHILS % (AUTO) 0.7 % (0-2); EOSINOPHILS % (AUTO) 0.2 % (0-6); HEMATOCRIT 50.6 % (36.0-47.0); HEMOGLOBIN 17.6 g/dL (12.0-15.5); LYMPHOCYTES % (AUTO) 28.2 % (13-45); MEAN CORPUSCULAR HGB CONC 34.8 g/dL (32.0-36.0); MONOCYTES % (AUTO) 6.4 % (3-13); PLATELET COUNT 229 10^3/uL (150-450); RED BLOOD COUNT 4.51 10^6/uL (3.72-5.28); RED CELL DISTRIBUTION WIDTH 14.3 % (11.5-14.0); SEGMENTED NEUTROPHILS % (AUTO) 64.5 % (42-78); TOTAL CELLS COUNTED % (AUTO) 100 %; WHITE BLOOD COUNT 8.7 10^3/uL (4.0-10.5)
[2018-09-18 16:48] LABS: URINE AMPHETAMINES SCREEN NEGATIVE; URINE BARBITURATES SCREEN NEGATIVE; URINE BENZODIAZEPINES SCREEN UNCONFIRMED POSITIVE; URINE COCAINE SCREEN NEGATIVE; URINE MARIJUANA (THC) SCREEN NEGATIVE; URINE METHADONE SCREEN NEGATIVE; URINE PHENCYCLIDINE SCREEN NEGATIVE
[2018-09-18 17:03] LABS: ALANINE AMINOTRANSFERASE 68 U/L (9-52); ALBUMIN 3.9 g/dL (3.5-5.0); ALCOHOL 41 mg/dL (NONE DETECTED); ALKALINE PHOSPHATASE 259 U/L (38-126); ANION GAP 14 (5-19); ASPARTATE AMINO TRANSFERASE 222 U/L (14-36); BILIRUBIN,DIRECT 0.6 mg/dL (0.0-0.4); BILIRUBIN,TOTAL 1.3 mg/dL (0.2-1.3); BLOOD UREA NITROGEN 7 mg/dL (7-20); CALCIUM 9.7 mg/dL (8.4-10.2); CARBON DIOXIDE 32 mmol/L (22-30); CHLORIDE 88 mmol/L (98-107); GLUCOSE 82 mg/dL (75-110); MEAN CORPUSCULAR VOLUME 112 fl (80-97); POTASSIUM 3.1 mmol/L (3.6-5.0); SODIUM 134.1 mmol/L (137-145); TOTAL PROTEIN 7.6 g/dL (6.3-8.2)
[2018-09-18 17:04] LABS: ACETAMINOPHEN < 10 ug/mL (10-30); SALICYLATE < 1.0 mg/dL (2.0-20.0)
[2018-09-18 17:10] LABS: PLATELET COMMENT ADEQUATE; PLATELET LARGE PRESENT
[2018-09-18 17:11] LABS: ANISOCYTOSIS SLIGHT
[2018-09-18] MEDS ORDERED: THIAMINE HCL 100 MG TABLET PO ONE (19:25)
[2018-09-18] MEDS ORDERED: POTASSIUM CHLORIDE 10 MEQ CAPSULE.ER PO ONE (19:25)
[2018-09-19] MEDS ORDERED: LORAZEPAM INJ 2 MG/1 ML VIAL IV ONE ×2 (00:41→04:10)
--- NOTE | 2018-09-19 02:29 | RADIOLOGY REPORT (SQ) ---
EXAM DESCRIPTION: CT CHEST ANGIOGRAPHY WITHOUT THEN WITH IV CONTRAST COMPLETED DATE/TME: 09/19/2018 00:40 CLINICAL HISTORY: 28 years, Female, eval for PE. HCG NEG. COMPARISON: None. TECHNIQUE: Axial images through the chest were performed after the administration of intravenous contrast using a pulmonary embolus protocol. MIPS were performed. This exam was performed according to our departmental dose-optimization program which includes use of Automated Exposure Control, adjustment of the mA and/or kV according to patient size and/or use of iterative reconstruction technique. FINDINGS: No pulmonary embolus is identified. Normal caliber aorta without dissection. No pericardial effusion. No pleural effusion. No focal lung consolidation. No pneumothorax. Patent central airway. Soft tissues are unremarkable. No acute osseous findings. No acute abnormality within the visualized upper abdomen. Diffuse hepatic steatosis. IMPRESSION: No pulmonary embolus.
[2018-09-19] MEDS ORDERED: NORMAL SALINE 1000 ML 1,000 ML IV ONE (02:50)
--- NOTE | 2018-09-19 03:47 | ER Document Report ---
ED General - General Chief Complaint: Medical Clearance Stated Complaint: MEDICAL CLEARANCE Time Seen by Provider: 09/18/18 15:34 Primary Care Provider: BRENTON PADRON MD [Primary Care Provider] - Follow up as needed Mode of Arrival: Wheelchair TRAVEL OUTSIDE OF THE [place] IN LAST 30 DAYS: No - HPI Notes: Patient is a 28-year-old female who presents to the emergency department for evaluation. She wants to go to alcohol detox. I actually saw this patient recently. She was diagnosed with a DVT in the left lower extremity, started on Coumadin. Because of her multiple medical issues, she was seen by [facility], they told her to go to the laboratory here at the hospital to be medically cleared for detox program. She had been turned down from detox programs recently because of Coumadin. The lab was closed per the patient, so she comes here. She states she has had emesis frequently. She has been drinking small amounts of alcohol on a daily basis because she is had "seizures" nearly daily. - Related Data Allergies/Adverse Reactions: No Known Allergies Allergy (Verified 09/18/18 13:52) Past Medical History - General Information source: Patient - Social History Smoking Status: Current Every Day Smoker Frequency of alcohol use: Heavy Drug Abuse: None Family History: Reviewed & Not Pertinent Patient has suicidal ideation: No Patient has homicidal ideation: No - Past Medical History Cardiac Medical History: Reports: Hx DVT, Hx Pulmonary Embolism Renal/ Medical History: Denies: Hx Peritoneal Dialysis Psychiatric Medical History: Reports: Hx Anxiety, Hx Depression - Immunizations Immunizations up to date: Yes Hx Diphtheria, Pertussis, Tetanus Vaccination: Yes Review of Systems - Review of Systems Constitutional: See HPI EENT: No symptoms reported Cardiovascular: No symptoms reported Respiratory: No symptoms reported Gastrointestinal: See HPI Genitourinary: No symptoms reported Musculoskeletal: No symptoms reported Skin: No symptoms reported Neurological/Psychological: No symptoms reported Physical Exam - Vital signs Vitals: Temp Pulse Resp BP Pulse Ox 98.1 F 107 H 18 109/78 99 09/18/18 14:45 09/18/18 14:45 09/18/18 14:45 09/18/18 14:45 09/18/18 14:45 - Notes Notes: Vital signs reviewed, please refer to chart. Head is normocephalic, atraumatic. Pupils equal round, reactive to light. Neck is supple without meningismus. Heart is regular rate and rhythm. Lungs are clear to auscultation bilaterally. Abdomen is soft, nontender, normoactive bowel sounds throughout. Extremities w ithout cyanosis, clubbing. Posterior calves are nontender. Peripheral pulses are equal. Skin is warm and dry. Patient is awake, alert, neurological exam is nonfocal. No tremors noted. Patient was mildly depressed affect, but makes good eye contact. Course - Re-evaluation Re-evalutation: 09/19/18 03:47 Patient presents to the emergency department for evaluation. She has multiple medical issues, including alcohol dependence and abuse. Laboratory investigations were initially obtained. EKG had been ordered through triage as well. Initial EKG showed a sinus mechanism and diffuse T wave inversions concerning for potential ischemia. This was a change from prior study. Given the abnormal ST and T segments, I did have a suspicion that this was secondary to electrolyte abnormalities. Patient had magnesium ordered in addition to her potassium. The potassium is found to be low, this was replaced orally once it was found the magnesium was normal. Her QT was prolonged, however, some magnesium was ordered IV. Laboratory investigations otherwise did show some significant dehydration. This was a change from prior studies. She was given a liter of normal saline. Repeat EKG continued to show significant anterolateral ST and T wave changes. Because of this troponins were added, CT angiogram of the chest was ordered. Patient's INR was found to be elevated. Her hemoglobin, however, was stable. I will have the patient hold her Coumadin. 09/19/18 04:07 Patient remained stable. I do not have a clear etiology for this patient's EKG changes. She was given IV fluids to correct her electrolyte abnormalities. She was given Ativan. We will give her further Ativan as she remains mildly tachycardic. Her cardiac enzymes were negative x2. Her LFTs are abnormal, but they have been abnormal. We will also write with prescription for Zofran. She continues to have some issues, but I believe they are stable for outpatient follow-up. She is medically clear for psychiatric evaluation. 09/19/18 04:12 - Vital Signs Vital signs: Temp Pulse Resp BP Pulse Ox 98.2 F 114 H 16 116/83 99 09/19/18 00:20 09/19/18 00:20 09/19/18 00:20 09/19/18 00:20 09/19/18 00:20 - Laboratory Result Diagrams: 09/18/18 16:03 09/18/18 16:03 Laboratory results interpreted by me: 09/18/18 09/18/18 09/18/18 16:03 16:03 16:03 Hgb 17.6 H Hct 50.6 H MCV 112 H MCH 39.0 H RDW 14.3 H PT 43.8 H APTT 45.4 H Sodium 134.1 L Potassium 3.1 L Chloride 88 L Carbon Dioxide 32 H Direct Bilirubin 0.6 H AST 222 H ALT 68 H Alkaline Phosphatase 259 H Urine Protein Urine Glucose (UA) Urine Ketones Urine Blood Urine Bilirubin Urine Urobilinogen Salicylates < 1.0 L Acetaminophen < 10 L 09/18/18 16:03 Hgb Hct MCV MCH RDW PT APTT Sodium Potassium Chloride Carbon Dioxide Direct Bilirubin AST ALT Alkaline Phosphatase Urine Protein 100 H Urine Glucose (UA) 50 H Urine Ketones TRACE H Urine Blood LARGE H Urine Bilirubin MODERATE H Urine Urobilinogen 4.0 H Salicylates Acetaminophen - Diagnostic Test Radiology reviewed: Reports reviewed Radiology results interpreted by me: 09/19/18 04:10 Chest/Abdomen CTA 09/19/18 00:40 IMPRESSION: No pulmonary embolus. - EKG Interpretation by Me Additional EKG results interpreted by me: 09/19/18 04:10 Initial EKG reveals a sinus mechanism with a rate of 76 bpm. Normal axis, long QT. T wave inversions in anterolateral leads concerning for ischemia. Repeat EKG remained unchanged. Discharge - Discharge Clinical Impression: Supratherapeutic INR, Alcohol abuse with physiological dependence, Dehydration Nausea and vomiting Qualifiers: Vomiting Intractability: intractable Condition: Stable Disposition: PSYCH HOSP/UNIT Additional Instructions: Hold your Coumadin tonight. Have your INR rechecked tomorrow. You should also have your electrolytes rechecked, as your potassium was low and you did show signs of dehydration. Zofran as needed for nausea and vomiting. Librium as needed for symptoms related to alcohol withdrawal. Return to the ED with worsening or new concerning symptoms of any sort. Forms: Follow-Up Laboratory Testing Referrals: BRENTON PADRON MD [Primary Care Provider] - Follow up as needed
[2018-09-19] MEDS ORDERED: MAGNESIUM SULFATE/D5W 1 GM/100 ML RTUPB IV ONE (04:12)
[2018-09-19] MEDS ORDERED: ATENOLOL 50 MG TABLET PO ONE (05:00)
[2018-09-19] MEDS ORDERED: THIAMINE HCL 100 MG, FOLIC ACID 1 MG in NORMAL SALINE 250 ML IV ONE (05:00)
[2018-09-19] MEDS ORDERED: PHYTONADIONE 5 MG TABLET PO ONE (05:00)
[2018-09-19] MEDS ORDERED: POTASSIUM PHOS,M-BASIC-D-BASIC 15 MMOL in NORMAL SALINE 250 ML IV ONE (05:00)
[2018-09-19] MEDS ORDERED: DIAZEPAM 5 MG TABLET PO ONE (05:00)
[2018-09-19 05:24] LABS: ANION GAP 10 (5-19); BLOOD UREA NITROGEN 8 mg/dL (7-20); CALCIUM 8.2 mg/dL (8.4-10.2); CARBON DIOXIDE 34 mmol/L (22-30); CHLORIDE 86 mmol/L (98-107); CREATINE KINASE 26 U/L (30-135); GLUCOSE 105 mg/dL (75-110); PHOSPHORUS 3.1 mg/dL (2.5-4.5); POTASSIUM 3.2 mmol/L (3.6-5.0); SODIUM 130.1 mmol/L (137-145)
--- NOTE | 2018-09-19 06:21 | PDOC CONSULTATION ---
Consultation Consult Date: 09/19/18 Attending physician:: DEE LEO Provider Consulted: FELIX WEISS Consult reason:: EKG abnormalities History of Present Illness Admission Date/PCP: 09/19/2018 04:01 BRENTON PADRON MD Patient complains of: Alcohol withdrawl symptoms History of Present Illness: BRANT MARION is a 28 year old female who presented to the emergency department for a detox evaluation so she may be medically cleared for detox program. She admits to having several symptoms of alcohol withdrawal since reducing her alcohol consumption. She acknowledges frequent episodes of vomiting and she has "small seizures" every day. She admits her resumption of drinking some alcohol daily "in order to try to control my seizures". She was recently evaluated and found to have a deep venous thrombosis in her left lower extremity and was placed on oral Coumadin as therapy. She has been taking her Coumadin but because she has not been established on a consistent dose she is finding a great deal of difficulty in being accepted by a detox program. Past Medical History Cardiac Medical History: Reports: DVT, Pulmonary Embolism Denies: Coronary Artery Disease, Hypertension Pulmonary Medical History: Denies: Asthma, Chronic Obstructive Pulmonary Disease (COPD) EENT Medical History: Denies: Cataracts, Ears - Hearing aids Neurological Medical History: Denies: Migraine, Multiple Sclerosis Endocrine Medical History: Denies: Diabetes Mellitus Type 1, Diabetes Mellitus Type 2, Hyperthyroidism, Hypothyroidism Renal/ Medical History: Denies: Chronic Kidney Disease, Nephrolithiasis Malignancy Medical History: Reports: None GI Medical History: Reports: Other - Elevated liver enzymes due to alcohol abuse Denies: Cirrhosis, Hepatitis Musculoskeltal Medical History: Denies: Arthritis, Fibromyalgia, Gout Skin Medical History: Denies: Eczema, Psoriasis Psychiatric Medical History: Reports: Alcohol Dependency, Depression, Tobacco Dependency Social History Information Source: Patient Lives with: Spouse/Significant other Smoking Status: Current Every Day Smoker Frequency of Alcohol Use: Heavy Hx Recreational Drug Use: No Drugs: None Hx Prescription Drug Abuse: No - Advance Directive Resuscitation Status: Full Code Surrogate healthcare decision maker:: Jonathan Boo Family History Family History: denies: CAD Parental Family History Reviewed: Yes Children Family History Reviewed: No Sibling(s) Family History Reviewed.: Yes Medication/Allergy Home Medications: Enoxaparin Sodium [Lovenox] 70 mg SQ BID #10 syringe 09/01/18 Warfarin Sodium [Coumadin 5 mg Tablet] 5 mg PO QHS #10 tablet 09/01/18 Chlordiazepoxide HCl [Librium 25 mg Capsule] 1 cap PO QID PRN #28 capsule 09/19/18 Ondansetron HCl [Zofran 8 mg Tablet] 8 mg PO Q8HP PRN #30 tablet 09/19/18 Allergies/Adverse Reactions: No Known Allergies Allergy (Verified 09/18/18 13:52) Review of Systems Constitutional: ABSENT: chills, fever(s) Eyes: ABSENT: visual disturbances, other - Ocular pain Ears: ABSENT: hearing changes, other - Ear pain Nose, Mouth, and Throat: ABSENT: mouth pain, sore throat Cardiovascular: ABSENT: chest pain, palpitations Respiratory: ABSENT: cough, dyspnea Gastrointestinal: PRESENT: nausea, vomiting. ABSENT: abdominal pain, constipation, diarrhea Genitourinary: ABSENT: dysuria, hematuria Musculoskeletal: ABSENT: back pain, joint swelling, muscle weakness Integumentary: ABSENT: pruritus, rash Neurological: PRESENT: convulsions - "Small seizures" almost every day. ABSENT: confusion, focal weakness, memory loss, syncope Psychiatric: PRESENT: anxiety, depression. ABSENT: hallucinations Endocrine: ABSENT: cold intolerance, heat intolerance Hematologic/Lymphatic: PRESENT: easy bruising. ABSENT: easy bleeding Physical Exam Vital Signs: Temp Pulse Resp BP Pulse Ox 98.2 F 114 H 16 116/83 99 09/19/18 00:20 09/19/18 00:20 09/19/18 00:20 09/19/18 00:20 09/19/18 00:20 Intake & Output 09/17/18 09/18/18 09/19/18 23:59 23:59 23:59 Weight 59.4 kg General appearance: PRESENT: no acute distress, cooperative Head exam: PRESENT: atraumatic, normocephalic Eye exam: PRESENT: conjunctiva pink. ABSENT: conjunctival injection, scleral icterus Ear exam: PRESENT: normal external ear exam. ABSENT: bleeding, drainage Mouth exam: PRESENT: dry mucosa, neck supple Neck exam: PRESENT: JVD. ABSENT: thyromegaly, tracheal deviation Respiratory exam: PRESENT: clear to auscultation beverley, symmetrical, unlabored Cardiovascular exam: PRESENT: RRR. ABSENT: clicks, gallop, rubs Pulses: PRESENT: normal radial pulses, normal dorsalis pedis pul Vascular exam: PRESENT: normal capillary refill. ABSENT: pallor GI/Abdominal exam: PRESENT: normal bowel sounds, soft Rectal exam: PRESENT: deferred Extremities exam: ABSENT: joint swelling, pedal edema, tenderness Musculoskeletal exam: PRESENT: full ROM, normal inspection Neurological exam: PRESENT: alert, oriented to person, oriented to place, oriented to time, oriented to situation, ataxia - Mild ataxia present, CN II-XII grossly intact, other - Mild tremor noted. ABSENT: motor sensory deficit Psychiatric exam: PRESENT: anxious, depressed Skin exam: PRESENT: dry, intact, warm. ABSENT: jaundice, rash, urticaria Results Laboratory Results: 09/18/18 16:03 09/18/18 09/18/18 09/18/18 16:03 16:03 16:03 WBC 8.7 RBC 4.51 Hgb 17.6 H Hct 50.6 H MCV 112 H MCH 39.0 H MCHC 34.8 RDW 14.3 H Plt Count 229 Seg Neutrophils % 64.5 Lymphocytes % 28.2 Monocytes % 6.4 Eosinophils % 0.2 Basophils % 0.7 Absolute Neutrophils 5.6 Absolute Lymphocytes 2.5 Absolute Monocytes 0.6 Absolute Eosinophils 0.0 Absolute Basophils 0.1 Sodium 134.1 L Potassium 3.1 L Chloride 88 L Carbon Dioxide 32 H Anion Gap 14 BUN 7 Creatinine 0.79 Est GFR ( Amer) > 60 Est GFR (Non-Af Amer) > 60 Glucose 82 Calcium 9.7 Magnesium Total Bilirubin 1.3 AST 222 H ALT 68 H Alkaline Phosphatase 259 H Total Protein 7.6 Albumin 3.9 Serum HCG, Qual NEGATIVE Urine Color Urine Appearance Urine pH Ur Specific [place] Urine Protein Urine Glucose (UA) Urine Ketones Urine Blood Urine Nitrite Ur Leukocyte Esterase Urine WBC (Auto) Urine RBC (Auto) 09/18/18 09/18/18 16:03 16:03 WBC RBC Hgb Hct MCV MCH MCHC RDW Plt Count Seg Neutrophils % Lymphocytes % Monocytes % Eosinophils % Basophils % Absolute Neutrophils Absolute Lymphocytes Absolute Monocytes Absolute Eosinophils Absolute Basophils Sodium Potassium Chloride Carbon Dioxide Anion Gap BUN Creatinine Est GFR ( Amer) Est GFR (Non-Af Amer) Glucose Calcium Magnesium 1.9 Total Bilirubin AST ALT Alkaline Phosphatase Total Protein Albumin Serum HCG, Qual Urine Color RICHI Urine Appearance CLOUDY Urine pH 6.0 Ur Specific [place] 1.031 Urine Protein 100 H Urine Glucose (UA) 50 H Urine Ketones TRACE H Urine Blood LARGE H Urine Nitrite NEGATIVE Ur Leukocyte Esterase NEGATIVE Urine WBC (Auto) 30 Urine RBC (Auto) 151 09/18/18 09/19/18 16:03 03:00 Troponin I < 0.012 < 0.012 Impressions: Chest/Abdomen CTA 09/19/18 00:40 IMPRESSION: No pulmonary embolus. Assessment and Plan - Diagnosis (1) Alcohol withdrawal Qualifiers: Complication of substance-induced condition: uncomplicated Qualified Code(s): F10.230 - Alcohol dependence with withdrawal, uncomplicated Is this a current diagnosis for this admission?: Yes Plan: Patient's anxiety and tremors and other withdrawal symptoms should be treated with Valium 5 mg p.o. every 4 hours over the course of the next 72 hours. Patient should refrain from use of any alcohol over that same period of time. At the end of the 72-hour period patient should be reevaluated for need to continue an anxiolytic such as diazepam or clonazepam. (2) Hypokalemia Is this a current diagnosis for this admission?: Yes Plan: Patient will receive oral and IV replacement of her potassium. Potassium phosphate IV will be used for the immediate replacement of the patient's potassium. (3) Supratherapeutic INR Is this a current diagnosis for this admission?: Yes Plan: Patient receive oral vitamin K to help to reduce her INR to a therapeutic level. The patient should have her INR rechecked in 24 hours and then a recalculation of her warfarin dosage could be entertained. It would be best for this patient to be started on either Lovenox at 1.5 mg/kg given once daily subcutaneously or she could be started on Xarelto/Pradaxa/Eliquis if this can be available to her in rehab and is covered by either her insurance or a program for patients with a need and no insurance. (4) Alcohol abuse with physiological dependence Is this a current diagnosis for this admission?: Yes Plan: Patient will be treated with Valium to help control her anxiety and other psychological reactions to discontinuation of alcohol. Her physiological dependence will be treated by repleting her potassium, checking and repleting phosphorus as needed, administration of a banana bag x1 and administration of oral Aden acid 1 mg x 1. Patient should be maintained on oral thiamine after her discharge and she may require additional phosphorus given orally to complete repletion of a depleted level if one is detected. - Time Time Spent with patient: 25-34 minutes Smoking Cessation Education: 3 to 10 minutes Medications reviewed and adjusted accordingly: Yes Anticipated discharge: Home - Patient should be discharged from the emergency room. There is no clear-cut indication for medical admission. Disposition: Patient should be discharged from the emergency room after completing her recommended course of treatment. If patient for some reason becomes unstable or is not fit for discharge please feel free to reconsult the hospitalist service.
[2018-09-19 09:53] LABS: CREATINE KINASE MB 0.25 ng/mL (<4.55)
[2018-09-19 09:57] LABS: TROPONIN I < 0.012 ng/mL
--- NOTE | 2018-09-19 10:16 | RADIOLOGY REPORT (SQ) ---
EXAM DESCRIPTION: CT HEAD WITHOUT COMPLETED DATE/TIME: 09/19/2018 10:06 am REASON FOR STUDY: seizure COMPARISON: None. TECHNIQUE: Axial images acquired through the brain without intravenous contrast. Images reviewed wi th bone, brain and subdural windows. Additional sagittal and coronal reconstructions were generated. Images stored on PACS. All CT scanners at this facility use dose modulation, iterative reconstruction, and/or weight based d osing when appropriate to reduce radiation dose to as low as reasonably achievable (ALARA). [facility]: Dose Right [facility]: CareDose [facility]: Dose Right [facility]: Teradose 4D [facility]: ETC Education RADIATION DOSE: CT Rad equipment meets quality standard of care and radiation dose reduction techniq ues were employed. CTDIvol: 53.2 mGy. DLP: 1044 mGy-cm. mGy. LIMITATIONS: None. FINDINGS: VENTRICLES: Normal size and contour. CEREBRUM: No masses. No hemorrhage. No midline shift. No evidence for acute infarction. Normal gra y/white matter differentiation. No areas of low density in the white matter. CEREBELLUM: No masses. No hemorrhage. No alteration of density. No evidence for acute infarction. EXTRAAXIAL SPACES: No fluid collections. No masses. ORBITS AND GLOBE: No intra- or extraconal masses. Normal contour of globe without masses. CALVARIUM: No fracture. PARANASAL SINUSES: No fluid or mucosal thickening. SOFT TISSUES: No mass or hematoma. OTHER: No other significant finding. IMPRESSION: NO ACUTE INTRACRANIAL IMAGING FINDINGS. EVIDENCE OF ACUTE STROKE: NO. COMMENT: Quality ID # [id number]: Final reports with documentation of one or more dose reduction techniques (e.g., Automated exposure control, adjustment of the mA and/or kV according to patient size, use of iterative reconstruction technique) TECHNICAL DOCUMENTATION: JOB ID: [id number] [employer]- All Rights Reserved Reading location - IP/workstation name: [email or web address]
[2018-09-19] MEDS ORDERED: FOLIC ACID INJ 5 MG/1 ML 10 ML VIAL ONE (10:51)
[2018-09-19] MEDS ORDERED: THIAMINE HCL INJ 200 MG/2 ML VIAL ONE (10:51)
[2018-09-19 11:45] LABS: INTERNATIONAL RATION (INR) 4.29; PROTHROMBIN TIME 42.3 SEC (11.4-15.4)
[2018-09-19 12:03] LABS: ANION GAP 7 (5-19); BLOOD UREA NITROGEN 8 mg/dL (7-20); CALCIUM 7.8 mg/dL (8.4-10.2); CARBON DIOXIDE 31 mmol/L (22-30); CHLORIDE 96 mmol/L (98-107); GLUCOSE 85 mg/dL (75-110); POTASSIUM 3.2 mmol/L (3.6-5.0); SODIUM 133.7 mmol/L (137-145)
[2018-09-19] MEDS ORDERED: POTASSIUM CHLORIDE 10 MEQ CAPSULE.ER PO ONE (12:43)
--- NOTE | 2018-09-19 12:44 | ER Document Report ---
Doctor's Note Notes: 09/19/18 12:44 Patient had a repeat INR and BMP ordered, her potassium still slightly low, 3.2, will be given replacement today, her INR has come down a little bit, but she was just given vitamin K yesterday evening, and will not be reflected in the INR for at least 24 to 48 hours, I feel the patient is stable to be discharged and is medically cleared to go to alcohol detox center. I discussed this with the patient, to have repeat blood work done next Tuesday, she is agreeable to this plan of care and was discharged home. [facility] has been working with her to get her set up for detox.
[2018-09-19 13:12] VITALS: BP 106/84
--- NOTE | 2018-09-20 07:54 | EKG REPORT ---
SEVERITY:- ABNORMAL ECG - SINUS RHYTHM NONSPECIFIC T ABNORMALITIES, ANTERIOR LEADS BORDERLINE PROLONGED QT INTERVAL : Confirmed by: Nkaul Lazaro MD 20-Sep-2018 07:53:51
--- NOTE | 2018-09-20 07:55 | EKG REPORT ---
SEVERITY:- ABNORMAL ECG - SINUS TACHYCARDIA REPOL ABNRM SUGGESTS ISCHEMIA, ANT-LAT LEADS PROLONGED QT INTERVAL : Confirmed by: Nakul Lazaro MD 20-Sep-2018 07:54:55
--- NOTE | 2018-09-20 07:56 | EKG REPORT ---
SEVERITY:- ABNORMAL ECG - SINUS RHYTHM ABNORMAL T, CONSIDER ISCHEMIA, DIFFUSE LEADS PROLONGED QT INTERVAL : Confirmed by: Nakul Lazaro MD 20-Sep-2018 07:55:06
== END 2018-09-19 13:13 | disposition home or self-care (01) ==
LOC: ER 13:49
DX: F10.10 Alcohol abuse, uncomplicated (principal); R79.89 Other specified abnormal findings of blood chemistry; E86.0 Dehydration; R11.2 Nausea with vomiting, unspecified; E87.6 Hypokalemia; Z86.718 Personal history of other venous thrombosis and embolism; Z79.01 Long term (current) use of anticoagulants; Z86.711 Personal history of pulmonary embolism
CPT/HCPCS: 93005 ×2; 99284; 96361; 96375; 96365; 96367; 36415; 82553; 80307 ×4; 82550; 83735; 84100; 84703; 85025; 85610; 85730; 80048; 80053; 81001; 84484; 70450; 71275; 93010 ×2; J3490 ×2; J2060; J3475; J3411; J7030; J7050

== ENCOUNTER → 2019-03-16 | Outpatient (CLI) | payer MEDICAID ==
--- NOTE | 2019-03-16 16:01 | RADIOLOGY REPORT (SQ) ---
EXAM DESCRIPTION: U/S [id number] TRNABD 1GES W/ODOP COMPLETED DATE/TIME: 03/16/2019 2:26 pm REASON FOR STUDY: (Z34.81)ENCOUNTER FOR SUPRVSN OF NORMAL , FIRST TRIMESTER Z34.81 ENCOUNT ER FOR SUPRVSN OF NORMAL , FIRST TRIM COMPARISON: None. TECHNIQUE: Transabdominal static and realtime grayscale images acquired of the pelvis. Additional se lected spectral and color Doppler images recorded. All images stored on PACs. bHCG: Choose 3 CLINICAL DATES: LMP 12/26/2018. 12 weeks 2 days. LIMITATIONS: None. FINDINGS: FETUS: Single Living intrauterine . ULTRASOUND EGA: 12 weeks 2 days. ULTRASOUND OMA: 09/26/2019 EFW: Not applicable less than 20 weeks. CRL: 5.78 cm FHR: 163 beats per minute. SURVEY: Too early to assess. AMNIOTIC FLUID: Adequate amount. PLACENTA: Not yet developed due to early gestation. SUBCHORIONIC BLEED: No SIZE OF BLEED: Not applicable. UTERUS: No masses. No anomalies. CERVICAL LENGTH: 3.5 cm. Closed. RIGHT ADNEXA: Normal ovary with normal vascular flow. 4.6 x 3.2 x 3.3 cm. There is a 2.6 x 2.7 x 2. 4 cm corpus luteum. No adnexal free fluid. No adnexal masses. LEFT ADNEXA: Normal ovary with normal vascular flow. 3.5 x 2.7 x 1.9 cm. No adnexal free fluid. No adnexal masses. FREE FLUID: None. OTHER: No other significant finding. IMPRESSION: LIVING INTRAUTERINE . EGA 12 weeks 2 days. Trimester of : First trimester - 0 to 13 weeks. TECHNICAL DOCUMENTATION: JOB ID: [id number] [employer]- All Rights Reserved rev-07/22 Reading location - IP/workstation name: [email or web address]
== END ==
LOC: RAD 13:28
PROVIDERS: ATTEND Nurse Practitioner Family
DX: Z34.81 Encounter for supervision of other normal pregnancy, first trimester (principal); Z3A.12 12 weeks gestation of pregnancy
CPT/HCPCS: 76801

== ENCOUNTER 2019-05-17 15:14 | Emergency (ER) | payer MEDICAID ==
--- NOTE | 2019-05-17 16:29 | ER Document Report ---
ED Medical Screen (RME) - General Chief Complaint: Cough Stated Complaint: COUGH Time Seen by Provider: 05/17/19 16:11 Mode of Arrival: Ambulatory Information source: Patient Notes: 29-year-old female patient presenting to the emergency department at 21 weeks gestation with complaints of cough and fever. Patient reports symptoms started yesterday. She has not traveled outside of the County, state or country. She has not had any exposure to any coronavirus patients. She states that she called her [employer] PATRO[employer]ER asking what type of medication could be taken safely in for cough and they told her to come to the emergency department to request coronavirus testing. Patient does not believe she has coronavirus. Of note patient does have a history of pulmonary embolism, she is taking Lovenox. Exam: Lung sounds clear and equal bilaterally. I have greeted and performed a rapid initial assessment of this patient. A comprehensive ED assessment and evaluation of the patient, analysis of test results and completion of the medical decision making process will be conducted by additional ED providers. I have specifically instructed the patient or family members with the patient to immediately return to any nursing staff should anything change in the patient's condition or with their chief complaint. TRAVEL OUTSIDE OF THE [place] IN LAST 30 DAYS: No - Related Data Allergies/Adverse Reactions: No Known Allergies Allergy (Verified 09/18/18 13:52) Past Medical History - Past Medical History Cardiac Medical History: Reports: Hx DVT, Hx Pulmonary Embolism Denies: Hx Coronary Artery Disease, Hx Hypertension Pulmonary Medical History: Denies: Hx Asthma, Hx COPD Neurological Medical History: Denies: Hx Migraine Endocrine Medical History: Denies: Hx Diabetes Mellitus Type 1, Hx Diabetes Mellitus Type 2, Hx Hyperthyroidism, Hx Hypothyroidism Renal/ Medical History: Denies: Hx Peritoneal Dialysis GI Medical History: Denies: Hx Cirrhosis, Hx Hepatitis Musculoskeltal Medical History: Denies Hx Arthritis, Denies Hx Fibromyalgia, Denies Hx Gout Skin Medical History: Denies Hx Eczema, Denies Hx Psoriasis Psychiatric Medical History: Reports: Hx Anxiety, Hx Depression Infectious Medical History: Denies: Hx Hepatitis - Immunizations Immunizations up to date: Yes Hx Diphtheria, Pertussis, Tetanus Vaccination: Yes Physical Exam - Vital signs Vitals: Temp Pulse Resp BP Pulse Ox 98.7 F 110 H 16 135/78 H 98 05/17/19 16:01 05/17/19 16:01 05/17/19 16:01 05/17/19 16:01 05/17/19 16:01 Course - Vital Signs Vital signs: Temp Pulse Resp BP Pulse Ox 98.7 F 110 H 16 135/78 H 98 05/17/19 16:01 05/17/19 16:01 05/17/19 16:01 05/17/19 16:01 05/17/19 16:01
--- NOTE | 2019-05-17 16:38 | RADIOLOGY REPORT (SQ) ---
EXAM DESCRIPTION: CHEST 2 VIEWS COMPLETED DATE/TIME: 05/17/2019 4:30 pm REASON FOR STUDY: fever/cough COMPARISON: None. TECHNIQUE: Frontal and lateral radiographic views of the chest acquired. NUMBER OF VIEWS: Two view. LIMITATIONS: None. FINDINGS: LUNGS AND PLEURA: No opacities, masses or pneumothorax. No pleural effusion. MEDIASTINUM AND HILAR STRUCTURES: No masses or contour abnormalities. HEART AND VASCULAR STRUCTURES: Heart normal size. No evidence for failure. BONES: No acute findings. HARDWARE: None in the chest. OTHER: No other significant finding. IMPRESSION: NO SIGNIFICANT RADIOGRAPHIC FINDING IN THE CHEST. TECHNICAL DOCUMENTATION: JOB ID: [id number] 2010 [employer]- All Rights Reserved Reading location - IP/workstation name: [email or web address]
[2019-05-17 17:10] LABS: A TYPE INFLUENZA AG NEGATIVE (NEGATIVE); B INFLUENZA AG NEGATIVE (NEGATIVE)
--- NOTE | 2019-05-17 17:46 | ER Document Report ---
ED Respiratory Problem - General Chief Complaint: Cough Stated Complaint: COUGH Time Seen by Provider: 05/17/19 16:11 Mode of Arrival: Ambulatory Notes: CHIEF COMPLAINT: Cough for 2 days HPI: 29-year-old female who is 21 weeks presenting for evaluation of cough for 2 days. No shortness of breath. Mild discomfort with coughing only. No fever. Had chills yesterday. Patient's son was sick with upper respiratory infection 3 to 4 days ago. Patient is on Lovenox for PE history 2 years ago denies pleuritic pain, called her [employer] ST[employer] STRAIGHTENER to see what cough medication she could take while on blood thinners and was told to come to the emergency department for evaluation. Patient denies any abdominal complaints at this time ROS: See HPI - all other systems were reviewed and are otherwise negative Constitutional: no fever Eyes: no drainage, no blurred vision ENT: no runny nose, no sore throat Cardiovascular: no chest pain Resp: no SOB, + cough GI: no vomiting, no diarrhea, no abdominal pain : no dysuria Integumentary: no rash Allergy: no hives Musculoskeletal: no extremity pain or swelling Neurological: no numbness/tingling, no weakness MEDICATIONS: I agree with the patient medications as charted by the RN. ALLERGIES: I agree with the allergies as charted by the RN. PAST MEDICAL HISTORY/PAST SURGICAL HISTORY: Reviewed and agree as charted by RN. SOCIAL HISTORY: Reviewed and agree as charted by RN. FAMILY HISTORY: No significant familial comorbid conditions directly related to patient complaint EXAM: Reviewed vital signs as charted by RN. CONSTITUTIONAL: Alert and oriented and responds appropriately to questions. Well-appearing; well-nourished HEAD: Normocephalic; atraumatic EYES: PERRL; Conjunctivae clear, sclerae non-icteric ENT: normal nose; no rhinorrhea; moist mucous membranes; pharynx without lesions noted, no uvula edema or deviation, no tonsillar hypertrophy, phonation normal NECK: Supple without meningismus; non-tender; no cervical lymphadenopathy, no masses CARD: RRR; no murmurs, no clicks, no rubs, no gallops; symmetric distal pulses RESP: Normal chest excursion without splinting or tachypnea; breath sounds clear and equal bilaterally; no wheezes, no rhonchi, no rales, pulse oximetry 98% on room air not hypoxic ABD/GI: Normal bowel sounds; non-distended; soft, non-tender, no rebound, no guarding; gravid uterus palpable BACK: The back appears normal and is non-tender to palpation, there is no CVA tenderness EXT: Normal ROM in all joints; non-tender to palpation; no cyanosis, no effusions, no edema SKIN: Normal color for age and race; warm; dry; good turgor; no acute lesions noted NEURO: Moves all extremities equally; Motor and sensory function intact PSYCH: The patient's mood and manner are appropriate. Grooming and personal hygiene are appropriate. MDM: 29-year-old female with upper respiratory symptoms for 2 days. Son was ill 3 to 4 days ago with similar symptoms. She is on Lovenox currently for PE. Her chest x-ray and flu test are negative. Likely a viral upper respiratory infection. She may continue her Lovenox. Symptomatic treatment Robitussin, albuterol inhaler, follow-up STRIP STAMP STRAIGHTENER TRAVEL OUTSIDE OF THE [place] IN LAST 30 DAYS: No - Related Data Allergies/Adverse Reactions: No Known Allergies Allergy (Verified 09/18/18 13:52) Home Medications: Lovenox Past Medical History - General Information source: Patient - Social History Smoking Status: Current Every Day Smoker Frequency of alcohol use: None Drug Abuse: None Family History: denies: CAD Patient has suicidal ideation: No Patient has homicidal ideation: No - Past Medical History Cardiac Medical History: Reports: Hx DVT, Hx Pulmonary Embolism Denies: Hx Coronary Artery Disease, Hx Hypertension Pulmonary Medical History: Denies: Hx Asthma, Hx COPD Neurological Medical History: Denies: Hx Migraine Endocrine Medical History: Denies: Hx Diabetes Mellitus Type 1, Hx Diabetes Mellitus Type 2, Hx Hyperthyroidism, Hx Hypothyroidism Renal/ Medical History: Denies: Hx Peritoneal Dialysis GI Medical History: Denies: Hx Cirrhosis, Hx Hepatitis Musculoskeletal Medical History: Denies Hx Arthritis, Denies Hx Fibromyalgia, Denies Hx Gout Skin Medical History: Denies Hx Eczema, Denies Hx Psoriasis Psychiatric Medical History: Reports: Hx Anxiety, Hx Depression Infectious Medical History: Denies: Hx Hepatitis - Immunizations Immunizations up to date: Yes Hx Diphtheria, Pertussis, Tetanus Vaccination: Yes Physical Exam - Vital signs Vitals: Temp Pulse Resp BP Pulse Ox 98.7 F 110 H 16 135/78 H 98 05/17/19 16:01 05/17/19 16:01 05/17/19 16:01 05/17/19 16:01 05/17/19 16:01 Course - Vital Signs Vital signs: Temp Pulse Resp BP Pulse Ox 98.7 F 110 H 16 135/78 H 98 05/17/19 16:01 05/17/19 16:01 05/17/19 16:01 05/17/19 16:01 05/17/19 16:01 Discharge - Discharge Clinical Impression: Viral upper respiratory infection Condition: Stable Disposition: HOME, SELF-CARE Additional Instructions: Follow-up with your STRIP STAMP STRAIGHTENER for further evaluation and treatment. You may take Robitussin for cough. Use the albuterol inhaler 2 puffs every 4 hours as needed for spastic cough. Continue your Lovenox. Flu test was negative. Chest x-ray negative for pneumonia
[2019-05-17] MEDS ORDERED: ALBUTEROL SULFATE HFA (90 MCG/PUFF) 8 GM MDI (1 MDI/ER DISP) IH PRN (17:48)
[2019-05-17 18:02] VITALS: BP 140/80
== END 2019-05-17 18:16 | disposition home or self-care (01) ==
LOC: ER 15:14
DX: O99.512 Diseases of the respiratory system complicating pregnancy, second trimester (principal); J06.9 Acute upper respiratory infection, unspecified; B97.89 Other viral agents as the cause of diseases classified elsewhere; O26.892 Other specified pregnancy related conditions, second trimester; R05 Cough; R06.02 Shortness of breath; O99.332 Smoking (tobacco) complicating pregnancy, second trimester; F17.200 Nicotine dependence, unspecified, uncomplicated; Z86.711 Personal history of pulmonary embolism; Z79.01 Long term (current) use of anticoagulants; Z3A.21 21 weeks gestation of pregnancy
CPT/HCPCS: 99283; 87804; 71046; J3490

== ENCOUNTER 2019-08-31 09:58 | Outpatient (CLI) | payer MEDICAID ==
--- NOTE | 2019-08-31 10:54 | Non Stress Test Report ---
Non Stress Test Datetime Report Generated by CPN: 08/31/2019 10:54 DEMOGRAPHIC Test Number: 1 EGA NST: 35.3 VITAL SIGNS Temperature - NST: 97.9 Pulse - NST: 111 RESP - NST: 16 NBPSYS NST: 116 NBPDIA NST: 68 MONITORING Monitor Explained: Monitor Explained; Test Explained; Patient Verbalized Understanding Time on Monitor: 08/31/2019 10:50 Time on Monitor: 08/31/2019 10:14 Time off Monitor: 08/31/2019 10:50 Time off Monitor: 08/31/2019 10:51 NST Duration: 0 NST Duration: 37 NST INTERVENTIONS NST Interventions: PO Hydration; Reposition Patient Physician Notified NST: Jori Garcia CNM BABY A: [id number] Movement : Present FHR Baseline : 130 Accelerations : 15X15 Decelerations : None Variability : Moderate 6-25bpm NST Review: Meets Criteria for Reactive NST NST Review and Verified By : Crow POLANCO Results: Reactive NST REPORT Report Trigger: Send Report
== END 2019-08-31 10:56 | disposition home or self-care (01) ==
LOC: LC 09:58
PROVIDERS: ATTEND Obstetrics & Gynecology
DX: Z34.93 Encounter for supervision of normal pregnancy, unspecified, third trimester (principal); Z3A.35 35 weeks gestation of pregnancy
CPT/HCPCS: 59025

== ENCOUNTER 2019-09-25 10:15 | Outpatient (CLI) | payer MEDICAID ==
[2019-09-25 11:18] LABS: APPEARANCE,URINE SLIGHTLY-CLOUDY; BILIRUBIN,URINE NEGATIVE (NEGATIVE); COLOR,URINE YELLOW; GLUCOSE, URINE NEGATIVE (NEGATIVE); KETONES,URINE NEGATIVE (NEGATIVE); LEUKOCYTE ESTERASE,URINE MODERATE (NEGATIVE); NITRITE,URINE NEGATIVE (NEGATIVE); PROTEIN,URINE NEGATIVE (NEGATIVE); URINE SPECIFIC GRAVITY 1.003; UROBILINOGEN,URINE NEGATIVE mg/dL (<2.0)
[2019-09-25 11:43] LABS: URINE AMPHETAMINES SCREEN NEGATIVE; URINE BARBITURATES SCREEN NEGATIVE; URINE BENZODIAZEPINES SCREEN NEGATIVE; URINE COCAINE SCREEN NEGATIVE; URINE MARIJUANA (THC) SCREEN NEGATIVE; URINE METHADONE SCREEN NEGATIVE; URINE PHENCYCLIDINE SCREEN NEGATIVE
[2019-09-25] MEDS ORDERED: FOSFOMYCIN TROMETHAMINE 3 GM PACKET PO ONE (14:00)
== END 2019-09-25 13:31 | disposition home or self-care (01) ==
LOC: LC 10:15
PROVIDERS: ATTEND Obstetrics & Gynecology
DX: O47.1 False labor at or after 37 completed weeks of gestation (principal); Z3A.39 39 weeks gestation of pregnancy
CPT/HCPCS: 81005; 80307; J3490

== ENCOUNTER 2019-09-25 16:35 | Inpatient (IN) | payer MEDICAID ==
--- NOTE | 2019-09-25 17:25 | Non Stress Test Report ---
Non Stress Test Datetime Report Generated by CPN: 09/25/2019 17:25 DEMOGRAPHIC Test Number: 3 Test Number: 2 EGA NST: 39.0 EGA NST: 39.0 INDICATION Indication for Study (NST) Other: IUP at 39.0; Labor check Indication for Study (NST) Other: IUP at 39 weeks, C/O contractions VITAL SIGNS Temperature - NST: 98.5 Temperature - NST: 97.9 Pulse - NST: 105 Pulse - NST: 111 RESP - NST: 18 RESP - NST: 16 NBPSYS NST: 109 NBPSYS NST: 116 NBPDIA NST: 72 NBPDIA NST: 68 MONITORING Monitor Explained: Monitor Explained; Test Explained; Patient Verbalized Understanding Time on Monitor: 09/25/2019 16:50 Time on Monitor: 09/25/2019 10:30 Time off Monitor: 09/25/2019 17:13 NST Duration: 23 NST INTERVENTIONS NST Interventions: PO Hydration NST Interventions: PO Hydration; Reposition Patient Physician Notified NST: Dr Rosado BABY A: [id number] BABY A Movement : Present Movement : Present Contraction Frequency : Irreg FHR Baseline : 125 Accelerations : 15X15 Decelerations : None Variability : Moderate 6-25bpm NST Review: Meets Criteria for Reactive NST NST Review and Verified By : Crow NST Review and Verified By : Crow GOMEST Results: Reactive NST REPORT Report Trigger: Send Report
[2019-09-25] MEDS ORDERED: RINGERS SOLUTION,LACTATED 1,000 ML IV PRN (20:49)
[2019-09-25] MEDS ORDERED: RINGERS SOLUTION,LACTATED 1,000 ML IV ONE (20:49)
[2019-09-25] MEDS ORDERED: OXYTOCIN 10 UNIT/ML VIAL ONE (21:06)
[2019-09-25] MEDS ORDERED: LIDOCAINE 1% INJ-PF (10 MG/ML) 30 ML SDV ONE (21:06)
[2019-09-25] MEDS ORDERED: MISOPROSTOL 0.2 MG TABLET ONE (21:06)
[2019-09-25] MEDS ORDERED: OXYTOCIN/0.9 % SODIUM CHLORIDE 30 UNIT/500 ML RTUINJ ONE (21:06)
[2019-09-25 21:40] LABS: ABSOLUTE LYMPHOCYTES (AUTO) 2.3 10^3/uL (0.5-4.7); ABSOLUTE MONOCYTES (AUTO) 0.6 10^3/uL (0.1-1.4); ABSOLUTE NEUT (AUTO) 10.5 10^3/uL (1.7-8.2); BASOPHILS % (AUTO) 0.3 % (0-2); EOSINOPHILS % (AUTO) 0.3 % (0-6); HEMATOCRIT 35.6 % (36.0-47.0); LYMPHOCYTES % (AUTO) 17.4 % (13-45); MEAN CORPUSCULAR HEMOGLOBIN 29.2 pg (27.0-33.4); MEAN CORPUSCULAR HGB CONC 33.6 g/dL (32.0-36.0); MEAN CORPUSCULAR VOLUME 87 fl (80-97); MONOCYTES % (AUTO) 4.3 % (3-13); PLATELET COUNT 187 10^3/uL (150-450); RED CELL DISTRIBUTION WIDTH 14.5 % (11.5-14.0); SEGMENTED NEUTROPHILS % (AUTO) 77.7 % (42-78); TOTAL CELLS COUNTED % (AUTO) 100 %; WHITE BLOOD COUNT 13.4 10^3/uL (4.0-10.5)
[2019-09-25] MEDS ORDERED: EPHEDRINE SULFATE INJ 50 MG/1 ML AMPULE ONE (21:55)
[2019-09-25] MEDS ORDERED: FENTANYL/BUPIVACAINE/NS/PF 300 MCG/150 ML RTUINJ EPI ONE (21:56)
[2019-09-25] MEDS ORDERED: BUPIVACAINE HCL 0.25 % INJ/PF (2.5 MG/1 ML) 30 ML VIAL ONE (21:56)
[2019-09-25] MEDS ORDERED: ROPIVACAINE HCL 0.2% INJ/PF (2 MG/ML) 20 ML SDV ONE (22:03)
--- NOTE | 2019-09-26 01:56 | Admission Physical ---
Datetime Report Generated by CPN: 09/26/2019 01:56 CURRENT ADMISSION Chief Complaint: Uterine Contractions Admit Impression : Term, Intrauterine ; Active Labor Admit Plan: Admit to Unit; Initiate Labor Protocol ALLERGIES Medication Allergies: No Medication Allergies: No Known Allergies (09/25/2019) Latex: No Latex Allergies Food Allergies: none Environmental Allergies: none OBSTETRICAL HISTORY EDC: 10/02/2019 00:00 : 3 Para: 2 Term: 2 : 0 SAB: 0 IAB: 0 Livin Gestational Diabetes: Yes Rh Sensitization: No Incompetent Cervix: No AGUILAR: No Infertility: No ART Treatment: No Uterine Anomaly: No IUGR: No Hx Previous C/S: No Macrosomia: No Hx Loss/Stillborn: No PIH: No Hx : No Placenta Previa/Abruption: No Depression/PP Depression: No PTL/PROM: No Post Hemorrhage: No Current Procedures: Ultrasound Obstetrical History Comments: G1-09/16/2009, 41 weeks, vaginal G2-09/07/10, 37weeks, vaginal G3-Current SEE RECORDS Alcohol: No Marijuana : No Cocaine: No Other Illicit Drugs: No Cigarettes: Current Everyday Smoker. [id number] Cigarette Frequency: > 10 per day Advised to Stop: Yes MEDICAL HISTORY Diabetes: Yes Diabetes Type: Gestational Diabetes Blood Transfusion: No Pulmonary Disease (Asthma, TB): No Breast Disease: No Hypertension: No Armature Repairer Surgery: No Heart Disease: No Hosp/Surgery: Yes Autoimmune Disorder: No Anesthetic Complications: No Kidney Disease: No Abnormal Pap Smear: No Neuro/Epilepsy: Yes Psychiatric Disorders: No Other Medical Diseases: No Hepatitis/Liver Disease: No Significant Family History: No Varicosities/Phlebitis: No Trauma/Violence : No Thyroid Dysfunction: No Medical History Comments: 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, hospitalized x2 childbirth INFECTIOUS HISTORY Gonorrhea: No Genital Herpes: No Chlamydia: No Tuberculosis: No Syphilis: No Hepatitis: No HIV/AIDS Exposure: No Rash or Viral Illness: No HPV: No PHYSICAL EXAM General: Normal HEENT: Normal Neurologic: Normal Thyroid: Normal Heart: Normal Lungs: Normal Breast: Normal Back: Normal Abdomen: Normal Genitourinary Exam: Normal Extremities: Normal DTRs: Normal Pelvic Type: Adequate Vital Signs: Reviewed; Within Normal Limits VAGINAL EXAM Dilatation: 6 Effacement: 90 Station: -1 MEMBRANES Membranes: Intact FETUS A EGA: 39.0 Monitoring: External US FHR- Baseline: 135 Variability: Moderate 6-25bpm Accelerations: 15X15 Decelerations: None FHR Category: Category I Presentation: Vertex Admit Comment: at 39.1 wks in active labor -admit to LDR -NPO and IVFs -CEFM and toco -GBS negative -Hx of 2 SVDs, anticipate PLANS FOR LABOR AND DELIVERY Labor and Delivery: None Pain Management: Epidural Feeding Preference: Breast Circumcision: Yes INFORMED CONSENT Informed Consent Obtained: Vaginal Delivery; Risks, Benefits and Alternatives Discussed Signature: with User ID: Bessie : with User ID: Bessie
[2019-09-26] MEDS ORDERED: DIPHENHYDRAMINE HCL 25 MG CAPSULE PO PRN (01:58)
[2019-09-26] MEDS ORDERED: DIPH/PERTUSS(ACELL)/TETANUS VAC/PF 0.5 ML SYR (>=10YO) IM PRN (01:58)
[2019-09-26] MEDS ORDERED: DIBUCAINE 1% OINTMENT 28 GM TP PRN (01:58)
[2019-09-26] MEDS ORDERED: MAGNESIUM HYDROXIDE SUSP 30 ML UDCUP PO PRN (01:58)
[2019-09-26] MEDS ORDERED: ACETAMINOPHEN 650 MG SUPP.RECT PR PRN (01:58)
[2019-09-26] MEDS ORDERED: ZOLPIDEM TARTRATE 5 MG TABLET PO PRN (01:58)
[2019-09-26] MEDS ORDERED: PROMETHAZINE HCL INJ 25 MG/1 ML VIAL IV PRN (01:58)
[2019-09-26] MEDS ORDERED: ACETAMINOPHEN WITH CODEINE #3 TABLET PO PRN ×2 (01:58)
[2019-09-26] MEDS ORDERED: GLYCERIN/WITCH HAZEL LEAF 1 EACH MED..WIPE TP PRN (01:58)
[2019-09-26] MEDS ORDERED: OXYTOCIN/0.9 % SODIUM CHLORIDE 30 UNIT/500 ML RTUINJ IV PRN (01:58)
[2019-09-26] MEDS ORDERED: PROMETHAZINE HCL 25 MG TABLET PO PRN (01:58)
[2019-09-26] MEDS ORDERED: BENZOCAINE/MENTHOL AEROSOL SPRAY 56 ML TOP PRN (01:58)
[2019-09-26] MEDS ORDERED: MEASLES,MUMPS&RUBELLA VACC/PF 0.5 ML VIAL SUBCUT PRN (01:58)
[2019-09-26] MEDS ORDERED: PROMETHAZINE HCL 25 MG SUPP.RECT PR PRN (01:58)
[2019-09-26] MEDS ORDERED: PSEUDOEPHEDRINE HCL 30 MG TABLET PO PRN (01:58)
[2019-09-26] MEDS ORDERED: ACETAMINOPHEN 325 MG TABLET PO PRN (01:58)
[2019-09-26] MEDS ORDERED: NA PHOS,M-B/NA PHOS,DI-BA (ADULT) 133 ML ENEMA PR PRN (01:58)
--- NOTE | 2019-09-26 02:57 | Delivery Summary ---
Del Sum A-C Datetime Report Generated by CPN: 09/26/2019 02:57 DELIVERY PERSONNEL DELIVERY PERSONNEL: [id number] Delivery Doctor:: Kristel Rosado MD Labor and Delivery Nurse:: Carmela Corado RNball winder Nurse:: Lucía Graf RN Side Show Entertainer/NARRATIVE WRITER: Essie Schrader RN Additional Personnel: : Adrianna Cesar RN MATERNAL INFORMATION Delivery Anesthesia: Epidural Medications After Delivery: Pitocin 30 Units in 500ml NS/D5W Estimated Blood Loss (ml): 250 Delivery QBL: 250 Maternal Complications: None Provider Comments: Called to patients room as she was complete/+2 station. Patient pushed through a few contractions and delivered a viable male infant. After delivery of the head a loose nuchal cord x1 was noted and was reduced. THe shoulders and rest of the body delivered easily. Infant vigorously crying. Cord clamping delayed for 30 seconds . Cord then cut and clamped . Infant placed skin to skin with Mother. Both stable LABOR SUMMARY EDC: 10/02/2019 00:00 No. Babies in Womb: 1 Attempted: No Labor Anesthesia: Epidural LABOR INFORMATION Reason for Induction: Not Applicable Onset of Labor: 09/25/2019 20:45 Complete Dilatation: 09/26/2019 00:25 Oxytocin: N/A Group B Beta Strep: NEG Antibiotics # of Doses: 0 Steroids Given: None Reason Steroids Not Administered: Not Applicable MEMBRANES Membranes Rupture Method: Artificial Rupture of Membranes: 09/26/2019 00:25 Length of Rupture (hr): 0.88 Amniotic Fluid Color: Clear Amniotic Fluid Amount: Moderate Amniotic Fluid Odor: Normal STAGES OF LABOR Stage 1 hr: 3 Stage 1 min: 40 Stage 2 hr: 0 Stage 2 min: 53 Stage 3 hr: 0 Stage 3 min: 4 Total Time in Labor hr: 4 Total Time in Labor min: 37 VAGINAL DELIVERY Episiotomy: None Laceration #1: Perineal Laceration Extension #1: First Degree Laceration Repair: Yes Laceration Repair Note: 2-[address] needle Sponge Count Correct: Yes Sharps Count Correct: Yes CSECTION DELIVERY Primary Indication: N/A Secondary Indication: N/A CSection Incidence: N/A Labor: N/A Elective: N/A CSection Incision: N/A BABY A INFORMATION Infant Delivery Date/Time: 09/26/2019 01:18 Method of Delivery: Vaginal Nurse Controlled Delivery: No Born in Route : No : N/A Forceps: N/A Vacuum Extraction: N/A Shoulder Dystocia : No PRESENTATION/POSITION BABY A Presentation: Cephalic Cephalic Presentation: Vertex Vertex Position: Left Occipital Anterior Breech Presentation: N/A PLACENTA INFORMATION BABY A Placenta Delivery Time : 09/26/2019 01:22 Placenta Method of Delivery: Spontaneous Placenta Status: Delivered SCORES BABY A Heart Rate 1 min: >100 bpm Resp Effort 1 min: Good Cry Reflex Irritability 1 min: Cough or Sneeze or Pulls Away Muscle Tone 1 min: Active Motion Color 1 min: Blue/Pale Resuscitation Effort 1 min: Tactile Stimulation SCORE 1 MIN: 8 Heart Rate 5 min: >100 bpm Resp Effort 5 min: Good Cry Reflex Irritability 5 min: Cough or Sneeze or Pulls Away Muscle Tone 5 min: Active Motion Color 5 min: Body [place], Extremities Blue SCORE 5 MIN: 9 INFORMATION BABY A Gestational Age at Delivery: 39.1 Gestational Status: Full Term- 39- 40.6 Weeks Outcome : Liveborn Condition : Stable Infant Sex: Male IDENTIFICATION BABY A Infant Verification Date/Time: 09/26/2019 01:27 ID Band Number: [id number] Mother's Name Verified: Yes RN Verifying Infant: Carolyn Schrader RN, KKash Mak RN WEIGHT/LENGTH BABY A Infant Birthweight (gm): 3200 Infant Weight (lb): 7 Infant Weight (oz): 1 Length (in): 19.25 Infant Length (cm): 48.90 CORD INFORMATION BABY A No. Cord Vessels: 3 Nuchal Cord : Around Neck x1, Loose Cord Blood Taken: Yes-For Eval (Mom's Blood Type - or O+) Suction: None ASSESSMENT BABY A Complications: None Physical Findings at Delivery: Within Normal Limits Respirations: Appears Normal Skin to Skin: No Transferred To: Remains with Mother BABY B INFORMATION : N/A
--- NOTE | 2019-09-26 03:11 | Warning Signs in Babies ---
VOD Warning Signs Datetime Report Generated by [facility]: 09/26/2019 03:11 VOD#[id number] -Warning Signs in Babies: Viewed with Parent(s)/Family (09/26/2019 03:00:Carmela Corado RN)
[2019-09-26] MEDS: IBUPROFEN 800 MG TABLET PO SCH ×4 (03:50→22:33)
[2019-09-26] MEDS: FERROUS SULFATE 325 MG TABLET PO SCH ×2 (09:08→18:06)
[2019-09-26] MEDS: DOCUSATE SODIUM 100 MG CAPSULE PO SCH ×2 (09:08→18:06)
[2019-09-26] MEDS: PRENATAL VITAMIN W DHA CAPSULE PO SCH (09:08)
[2019-09-26] MEDS: FAMOTIDINE 20 MG TABLET PO SCH ×2 (09:08→22:32)
[2019-09-26] MEDS: SENNOSIDES/DOCUSATE 8.6-50 MG 1 EACH TABLET PO SCH (09:08)
--- NOTE | 2019-09-26 12:59 | PDOC PROGRESS REPORT ---
Subjective-OB Progress Note for:: 09/26/19 Subjective: 29yo G3 now P3 s/p delivery da. Pt ambulating and voiding without difficulty. Reports pain well controlled by medication, denies any concerns today. Physical Exam (OB) Vital Signs: Temp Pulse Resp BP Pulse Ox 98.1 F 82 16 124/88 H 99 09/26/19 08:00 09/26/19 08:00 09/26/19 08:00 09/26/19 08:00 09/26/19 08:00 Intake & Output 09/25/19 09/26/19 09/27/19 06:59 06:59 06:59 Weight 87.7 kg - General General Appearance: Appears well In distress: None - PIH/Pre-Eclampsia DTR's: 1 + Clonus: Negative Headache: Absent Epigastric Pain: No Visual Changes: No - Episiotomy/Laceration Site Condition: Well Approximated - Lochia Lochia Amount: Small 10-25 ml Lochia Color: Rubra/Red - Abdomen Description: Soft, Round Hernia Present: No Fundal Description: Firm, Midline Fundal Height: u/u - u/2 - Respiratory Respiratory Status: No respiratory distress - Extremities Upper extremity: Normal inspection Lower extremities: Normal inspection - Neurological Cognition: Normal Orientation: AAOx4 - Psychological Associated symptoms: Normal affect, Normal mood Objective-Diagnostic Laboratory: 09/25/19 21:25 09/25/19 09/25/19 21:25 21:25 WBC 13.4 H RBC 4.10 Hgb 12.0 Hct 35.6 L MCV 87 MCH 29.2 MCHC 33.6 RDW 14.5 H Plt Count 187 Seg Neutrophils % 77.7 Blood Type O POSITIVE Antibody Screen NEGATIVE Assessment and Plan(PN) - Assessment and Plan (1) Vaginal delivery Is this a current diagnosis for this admission?: Yes Plan: routine pp care (2) Smoking (tobacco) complicating , third trimester Is this a current diagnosis for this admission?: Yes Plan: cessation encouraged (3) Perineal laceration during delivery, delivered Is this a current diagnosis for this admission?: Yes Plan: continue to monitor for s/s of infection (4) Gestational diabetes mellitus (GDM) affecting third Is this a current diagnosis for this admission?: Yes Plan: delivered, pp fasting glucose as indicated (5) History of DVT in adulthood Is this a current diagnosis for this admission?: Yes Plan: will start Lovenox as indicated - Time Spent with Patient Time with patient: Less than 15 minutes Smoking Education Provided: Over 3 minutes Medications reviewed and adjusted accordingly: Yes - Disposition Anticipated Discharge: Home Within: within 48 hours
[2019-09-27] MEDS: IBUPROFEN 800 MG TABLET PO SCH (06:14)
[2019-09-27 06:51] LABS: HEMATOCRIT 30.9 % (36.0-47.0); HEMOGLOBIN 10.4 g/dL (12.0-15.5); MEAN CORPUSCULAR HEMOGLOBIN 29.6 pg (27.0-33.4); MEAN CORPUSCULAR HGB CONC 33.6 g/dL (32.0-36.0); MEAN CORPUSCULAR VOLUME 88 fl (80-97); PLATELET COUNT 144 10^3/uL (150-450); RED CELL DISTRIBUTION WIDTH 14.6 % (11.5-14.0); WHITE BLOOD COUNT 8.7 10^3/uL (4.0-10.5)
[2019-09-27] MEDS ORDERED: ENOXAPARIN SODIUM INJ 40 MG/0.4 ML DISP.SYRIN SUBCUT SCH (10:00)
--- NOTE | 2019-09-27 10:00 | PDOC PROGRESS REPORT ---
Subjective-OB Progress Note for:: 09/27/19 Subjective: Sitting up in bed, doing well, ready to go home if baby can go, has Lovenox at home to take 4 weeks pp, , walking, voiding, has TEDS and SCD's on Physical Exam (OB) Vital Signs: Temp Pulse Resp BP Pulse Ox 97.5 F 65 16 117/74 99 09/27/19 07:12 09/27/19 07:12 09/27/19 07:12 09/27/19 07:12 09/27/19 07:12 Intake & Output 09/26/19 09/27/19 09/28/19 06:59 06:59 06:59 Intake Total 600 Balance 600 Weight 87.7 kg - PIH/Pre-Eclampsia DTR's: 1 + Clonus: Negative Headache: Absent Epigastric Pain: No Visual Changes: No - Lochia Lochia Amount: Scant < 10 ml Lochia Color: Rubra/Red - Abdomen Description: Soft, Round Hernia Present: No Fundal Description: Firm, Midline Fundal Height: u/u - u/2 Objective-Diagnostic Laboratory: 09/27/19 06:18 09/27/19 06:18 WBC 8.7 RBC 3.50 L Hgb 10.4 L Hct 30.9 L MCV 88 MCH 29.6 MCHC 33.6 RDW 14.6 H Plt Count 144 L Assessment and Plan(PN) - Assessment and Plan (1) Anxiety and depression Is this a current diagnosis for this admission?: Yes (2) Vaginal delivery Is this a current diagnosis for this admission?: Yes (3) Smoking (tobacco) complicating , third trimester Is this a current diagnosis for this admission?: Yes (4) Perineal laceration during delivery, delivered Is this a current diagnosis for this admission?: Yes (5) Gestational diabetes mellitus (GDM) affecting third Is this a current diagnosis for this admission?: Yes (6) History of DVT in adulthood Is this a current diagnosis for this admission?: Yes - Time Spent with Patient Time with patient: Less than 15 minutes Smoking Education Provided: Over 3 minutes Medications reviewed and adjusted accordingly: Yes - Disposition Anticipated Discharge: Home Within: within 24 hours
[2019-09-27] MEDS: PRENATAL VITAMIN W DHA CAPSULE PO SCH (10:30)
[2019-09-27] MEDS: FAMOTIDINE 20 MG TABLET PO SCH (10:30)
[2019-09-27] MEDS: FERROUS SULFATE 325 MG TABLET PO SCH (10:30)
[2019-09-27] MEDS: SENNOSIDES/DOCUSATE 8.6-50 MG 1 EACH TABLET PO SCH (10:30)
[2019-09-27] MEDS: DOCUSATE SODIUM 100 MG CAPSULE PO SCH (10:30)
--- NOTE | 2019-09-27 12:06 | PDOC DISCHARGE SUMMARY ---
Impression - Admit/DC Date/PCP Admission Date/Primary Care Provider: 09/25/19 20:48 JESUS CAST MD Discharge Date: 09/27/19 - Discharge Diagnosis (1) Anxiety and depression Is this a current diagnosis for this admission?: Yes (2) Vaginal delivery Is this a current diagnosis for this admission?: Yes (3) Smoking (tobacco) complicating , third trimester Is this a current diagnosis for this admission?: Yes (4) Perineal laceration during delivery, delivered Is this a current diagnosis for this admission?: Yes (5) Gestational diabetes mellitus (GDM) affecting third Is this a current diagnosis for this admission?: Yes (6) History of DVT in adulthood Is this a current diagnosis for this admission?: Yes - Additional Information Discharge Diet: As Tolerated, Regular Discharge Activity: Activity As Tolerated, Pelvic Rest Referrals: JESUS CAST MD [Primary Care Provider] - Home Medications: 95/Iron Fum/Folic/Dha [ + Dha Combo Pack] 1 each PO DAILY 08/31/19 Enoxaparin Sodium [Lovenox Inj 40 mg/0.4 ml Disp.syrin] 40 mg SUBCUT DAILY disp.syrin 09/27/19 HPI Gestational Age: 39.1 Reason(s) for Admission: Onset of Labor, Gestional Diabetes Admission Note: Hx DVT Procedures: Ultrasound Intrapartum Procedure(s): Spontaneous Vaginal Delivery Complication(s): Laceration-Perineal Laceration-Degree: 1st Hospital Course Hospital Course: routine Results Laboratory Results: WBC 8.7 10^3/uL (4.0-10.5) 09/27/19 06:18 RBC 3.50 10^6/uL (3.72-5.28) L 09/27/19 06:18 Hgb 10.4 g/dL (12.0-15.5) L 09/27/19 06:18 Hct 30.9 % (36.0-47.0) L 09/27/19 06:18 MCV 88 fl (80-97) 09/27/19 06:18 MCH 29.6 pg (27.0-33.4) 09/27/19 06:18 MCHC 33.6 g/dL (32.0-36.0) 09/27/19 06:18 RDW 14.6 % (11.5-14.0) H 09/27/19 06:18 Plt Count 144 10^3/uL (150-450) L 09/27/19 06:18 Lymph % (Auto) 17.4 % (13-45) 09/25/19 21:25 [place] % (Auto) 4.3 % (3-13) 09/25/19 21:25 Eos % (Auto) 0.3 % (0-6) 09/25/19: Baso % (Auto) 0.3 % (0-2) 09/25/19 21: Absolute Neuts (auto) 10.5 10^3/uL (1.7-8.2) H 09/25/19 21: Absolute Lymphs (auto) 2.3 10^3/uL (0.5-4.7) 09/25/19 21: Absolute Monos (auto) 0.6 10^3/uL (0.1-1.4) 09/25/19 21: Absolute Eos (auto) 0.0 10^3/uL (0.0-0.6) 09/25/19 21: Absolute Basos (auto) 0.0 10^3/uL (0.0-0.2) 09/25/19 21: Seg Neutrophils % 77.7 % (42-78) 09/25/19 21: RPR NONREACTIVE (NONREACTIVE) 09/25/19 21:25 Blood Type O POSITIVE 09/25/19: Antibody Screen NEGATIVE 09/25/19 21: Plan Health Concerns: Hx DVT, anxiety, depression, hx alcohol abuse Plan of Treatment: discharge home, Lovenox 40 sq, rev S&S to report Goals: no complications Time Spent: Less than 30 Minutes - pt has lovenox at home and is aware to take it 40 sq qd,
[2019-09-27 12:26] VITALS: BP 124/88
== END 2019-09-27 13:50 | disposition home or self-care (01) | DRG 807 ==
LOC: LC 16:35 → LR 20:48 → 2S 09-26 02:57
PROVIDERS: ADMIT Obstetrics & Gynecology; ATTEND Obstetrics & Gynecology
PROC: 10E0XZZ Delivery of Products of Conception, External Approach (ICD-10-PCS; principal; 2019-09-26)
PROC: 0HQ9XZZ Repair Perineum Skin, External Approach (ICD-10-PCS; 2019-09-26)
DX: O24.429 Gestational diabetes mellitus in childbirth, unspecified control (principal); Z37.0 Single live birth; O99.334 Smoking (tobacco) complicating childbirth; O69.81X0 Labor and delivery complicated by cord around neck, without compression, not applicable or unspecified; F17.210 Nicotine dependence, cigarettes, uncomplicated; O70.0 First degree perineal laceration during delivery; Z3A.39 39 weeks gestation of pregnancy; O99.344 Other mental disorders complicating childbirth; F41.9 Anxiety disorder, unspecified; F32.9 Major depressive disorder, single episode, unspecified; Z86.718 Personal history of other venous thrombosis and embolism
CPT/HCPCS: 1967; 36415; 59025; 85025; 85027; 86592; 86850; 86900; 86901; C1758; J1650; J2590; J2795; J3010; J3490

== ENCOUNTER 2020-04-01 23:33 | Emergency (ER) | payer MEDICAID ==
[2020-04-02 00:08] VITALS: BP 140/92
--- NOTE | 2020-04-02 02:29 | RADIOLOGY REPORT (SQ) ---
CLINICAL INDICATION: bone pain. . TECHNIQUE: 3 view(s) were obtained of the left ankle. COMPARISON: None. FINDINGS: No acute displaced fracture is identified of the ankle. Alignment appears anatomic. Joint spaces are within normal limits for age. Soft tissue swelling. IMPRESSION: No evidence of acute displaced fracture of the ankle.
--- NOTE | 2020-04-02 03:11 | ER Document Report ---
ED Extremity Problem, Lower - General Chief Complaint: Ankle Injury Stated Complaint: SWOLLEN LEFT LEG Time Seen by Provider: 04/02/20 03:02 Primary Care Provider: DANIEL CARTAGENA MD [Primary Care Provider] - Follow up as needed Mode of Arrival: Wheelchair Information source: Patient Notes: 04/02/20 01:22 - ED Nursing Note by REGGIEDAXGerhard Mckinnon Num: [id number] : 1990 Patient Age: 29 pt was rough housing and someone's foot hit her left ankle. area is swollen, painful to bear wt. cms to foot is good. MY NOTES 29-year-old female arrives with chief complaint of having injured her anterior and medial ankle while playing with her kids over the last 2 days but this evening around 10 PM as she was walking around a corner in the hallway her 150 pound wrestler 13-year-old brother impacted her left lateral malleolus with his big toe. She instantly had a lot of pain and had to hobble using her good right foot. 3 years ago she had a blood clot in her left leg and had to take Lovenox twice a day because of her . She denies any blood clots symptoms to her left calf or medial thigh at this time. She does have pain and swelling to her toes at this time. TRAVEL OUTSIDE OF THE [place] IN LAST 30 DAYS: No - HPI Patient complains to provider of: Injury, Pain - Left lateral malleolus, Swelling Location: Ankle Occurred: Just prior to arrival Where: Home Onset/Duration: Sudden, Persistent Quality of pain: Achy Severity: Moderate Pain Level: 3 Context: Direct blow Recent injury: Possibly Associated symptoms: Painful ambulation, Unable to bear weight. denies: Chest pain, Chills, Dizzy, Fainting, Fever, Wise a crack, Wise a pop, Rapid heart rate, Seizure, Short of breath, Sweaty, Weak - Related Data Allergies/Adverse Reactions: No Known Allergies Allergy (Verified 09/25/19 16:45) Home Medications: MVI Past Medical History - General Information source: Patient - Social History Smoking Status: Current Every Day Smoker Cigarette use (# per day): Yes Chew tobacco use (# tins/day): No Smoking Education Provided: Yes Frequency of alcohol use: None Lives with: Family Family History: Reviewed & Not Pertinent. denies: CAD Patient has suicidal ideation: No Patient has homicidal ideation: No - Past Medical History Cardiac Medical History: Reports: Hx DVT, Hx Pulmonary Embolism Denies: Hx Coronary Artery Disease, Hx Hypertension Pulmonary Medical History: Denies: Hx Asthma, Hx COPD Neurological Medical History: Denies: Hx Migraine Endocrine Medical History: Denies: Hx Diabetes Mellitus Type 1, Hx Diabetes Mellitus Type 2, Hx Hyperthyroidism, Hx Hypothyroidism Renal/ Medical History: Denies: Hx Peritoneal Dialysis GI Medical History: Denies: Hx Cirrhosis, Hx Hepatitis Musculoskeletal Medical History: Denies Hx Arthritis, Denies Hx Fibromyalgia, Denies Hx Gout Skin Medical History: Denies Hx Eczema, Denies Hx Psoriasis Psychiatric Medical History: Reports: Hx Anxiety, Hx Depression Infectious Medical History: Denies: Hx Hepatitis - Immunizations Immunizations up to date: Yes Hx Diphtheria, Pertussis, Tetanus Vaccination: Yes Review of Systems - Review of Systems Constitutional: No symptoms reported EENT: No symptoms reported Cardiovascular: No symptoms reported Respiratory: No symptoms reported Gastrointestinal: No symptoms reported Genitourinary: No symptoms reported Female Genitourinary: No symptoms reported Musculoskeletal: See HPI, Joint pain - Left lateral malleolus greater than medial malleolus pain on palpation, Joint swelling, Ankle swelling Skin: No symptoms reported Hematologic/Lymphatic: No symptoms reported Neurological/Psychological: See HPI, Gait changes Physical Exam - Vital signs Vitals: Temp Pulse Resp BP Pulse Ox 98.2 F 98 16 140/92 H 97 04/02/20 00:07 04/02/20 00:07 04/02/20 00:07 04/02/20 00:07 04/02/20 00:07 Interpretation: Normal - General General appearance: Appears well, Alert - HEENT Head: Normocephalic, Atraumatic Eyes: Normal Pupils: PERRL - Respiratory Respiratory status: No respiratory distress Chest status: Nontender Breath sounds: Normal Chest palpation: Normal - Cardiovascular Rhythm: Regular Heart sounds: Normal auscultation Murmur: No - Abdominal Inspection: Normal Distension: No distension Bowel sounds: Normal Tenderness: Nontender Organomegaly: No organomegaly - Rectal Hemorrhoids: Other - deferred - Genitourinary [place]iman[place] exam: Other - deferred - Back Back: Normal, Nontender - Extremities General upper extremity: Normal inspection, Nontender, Normal color, Normal ROM, Normal temperature General lower extremity: Tender, Edema - Left lateral malleolus tender to palpation as well as tender anterior ankle and medial malleolus from prior injury. The left lateral malleolus is acutely tender secondary to impact tonight. She has mild edema of anterior left toes. Dorsalis pedis pulses are full with good sensation to extremities, Normal temperature. No: Roseline's sign - Neurological Neuro grossly intact: Yes Cognition: Normal Orientation: AAOx4 Calcium Coma Scale Eye Opening: Spontaneous Calcium Coma Scale Verbal: Oriented Calcium Coma Scale Motor: Obeys Commands Calcium Coma Scale Total: 15 Speech: Normal Motor strength normal: LUE, RUE, LLE, RLE Sensory: Normal - Psychological Associated symptoms: Normal affect, Normal mood - Skin Skin Temperature: Warm Skin Moisture: Dry Skin Color: Normal Course - Vital Signs Vital signs: Temp Pulse Resp BP Pulse Ox 98.2 F 98 16 140/92 H 97 04/02/20 00:07 04/02/20 00:07 04/02/20 00:07 04/02/20 00:07 04/02/20 00:07 - Laboratory Results Critical Laboratory Results Reviewed: No Critical Results Attending or Supervising Physician who Reviewed Labs: DELMY JIM JR - Radiology Results Critical Radiology Results Reviewed: No Critical Results Attending or Supervising Physician who Reviewed Radiology: DELMY JIM JR Discharge - Discharge Clinical Impression: Contusion of ankle or foot, left Condition: Stable Disposition: HOME, SELF-CARE Instructions: Ice & Elevation ([facility]), Use of Crutches ([facility]), Ankle Stirrup Splint ([facility]) Additional Instructions: Follow-up with orthopedics Dr. Irby in his office. You may call tomorrow for appointment. Return to ER as needed R ICE that is rest ice elevation compression to your left ankle. Off work as directed as well. Prescriptions: Etodolac [Lodine] 400 mg PO BID PRN #14 tablet PRN Reason: Pain Scale Of 1 Forms: Return to Work Referrals: DANIEL CARTAGENA MD [Primary Care Provider] - Follow up as needed
[2020-04-02] MEDS ORDERED: HYDROCODONE/ACETAMINOPHEN 5-325 MG (6 TAB/ER DISP) PO PRN (03:21)
== END 2020-04-02 03:48 | disposition home or self-care (01) ==
LOC: ER 23:33
DX: T14.8XXA Other injury of unspecified body region, initial encounter (principal); M25.572 Pain in left ankle and joints of left foot; M25.472 Effusion, left ankle; W51.XXXA Accidental striking against or bumped into by another person, initial encounter; Y92.008 Other place in unspecified non-institutional (private) residence as the place of occurrence of the external cause; R60.0 Localized edema; F17.210 Nicotine dependence, cigarettes, uncomplicated; Z79.899 Other long term (current) drug therapy
CPT/HCPCS: 99283